=== PATIENT | female | born 1980 | race Caucasian/White ===

== ENCOUNTER 2023-06-19 12:58 | Outpatient (CLI) | payer OTHER, SELFPAY ==
--- OUTSIDE RECORDS SUMMARY | 2023-06-19 13:06 | XMS_ITS | Encounter Summary ---
Author Name [facility] Organization [facility] Address [address] [place] [address] Support Name Relationship Address Phone SHERITA FAVIOLA Next of Kin [address] [place] [address] SHERITAFAVIOLA Emergency Contact [address] [place], [place] [phone] JOSE ELIAS LANDON Next of Kin [address] [facility] [place], [place] ISSAC LANDON Emergency Contact [address] [place], [place] Selected Encounter This section includes the information on record at [place] for the Encounter. Date/Time Encounter Type Encounter Description Reason Provider Source Apr 20, 2023 03:07 PM EMERGENCY DEPT VISIT [facility] EMERGENCY DEPT ICD-10-CM I10 Essential (primary) hypertension SA ELLE GARZA Blake Encounter Template Text not used by [place] Assessments - Encounter Diagnoses This section includes the primary and secondary diagnoses documented for the Encounter. Date/Time Primary/Secondary Diagnosis Diagnosis Name Provider Source Apr 20, 2023 04:05 PM PRIMARY Essential (primary) hypertension GREGSA [facility] Plan of Treatment: Future Appointments (+ 6 months) and Future Tests (+/- 45 days) The Plan of Treatment section includes future care activities for the patient from all [place] treatmentfacilities. This section includes future appointments and future orders which are active, pending or scheduled. Future Appointments This section includes appointments that were scheduled to occur 6 months from the date of the Encounter, up to a maximum of 20 appointments. The data comes from all [place] treatment facilities. Appointment Date/Time Appointment Type Appointme nt Facility Name Apr 24, 2023 10:00 AM AMBULATORY - NONE [facility] May 12, 2023 02:00 PM AMBULATORY - MEDICINE [facility] Vital Signs: All taken on the encounter date This section contains inpatient and outpatient Vital Signs collected on the date of the Encounter. Date/Time Temperature Pulse Blood Pressure Respiratory Rate SP02 Pain Height Weight Body Mass Index Source Apr 20, 2023 03:55 PM 171/107 [facility] Apr 20, 2023 03:12 PM 98.6 100 210/110 99 [facility] Advance Directives: All historical and current Section Date Range: From patient's date of to the date document was created. This section includes ALL of a patient's completed or amended [place] Advance and Rescinded Directives. The entries below indicate that a directive exists for the patient, but an actual copy is not included with this document. The data comes from all [place] facilities. Date Advance Directives Provider Source Sep 13, 2018 ADVANCE DIRECTIVE DISCUSSION [facility] Encounter Notes: All associated encounter notes This section contains the clinical notes associated to the Encounter. Date/Time Encounter Note(s) Provider Source Apr 20, 2023 04:06 PM PHYSICIAN EMERGENC Y DEPT NOTE: LOCAL TITLE: EMERGENCY DEPT NOTE STANDARD TITLE: PHYSICIAN EMERGENCY DEPT NOTE DATE OF NOTE: APR 20, 2023@16:06 ENTRY DATE: APR 20, 2023@16:06:36 AUTHOR: LLOYD GARZA EXP COSIGNER: URGENCY: STATUS: COMPLETED Personal Protective Equipment (PPE): None Chief Complaint: The patient is a 43 y/o FEMALE complaining of: High blood pressure TDAP/TD Immunizations No data available for: TETANUS TOXOID, ADSORBED TETANUS TOXOID, NOT ADSORBED TETANUS TOXOID, UNSPECIFIED FORMULATION TDAP Covid-19 Immunizations ADMINISTERED Immunization Series Date Facility Reaction Info COVID-19 (MODERNA), MRNA, LNP-S,* 07/14/2020 [facility] COVID-19 (MODERNA), MRNA, LNP-S,* 08/11/2020 [facility] COVID-19 (MODERNA), MRNA, LNP-S,* 03/11/2021 [facility] CONTRAINDICATED No data available REFUSED ======= No data available * Value is truncated; see the Detailed Immunizations Health Summary Component[DIM] for complete text History of present illness: Patient with history of hypertension who is on diltiazem and olmesartan who has run out of the latter medication went to [facility] urgent care to get a refill of her meds and there she was found to have high blood pressure 210/110 so they asked the patient to go to the emergency room and she came here. Patient states that she has been having on and off some headache but denies any vision changes. Denies current chest pain. She has taken her diltiazem today but not the other medication. Allergies: Patient has answered NKA Review of Systems: 10 point ROS reviewed and otherwise negative unless stated in HPI. Past Medical History: Problem List - Active - NONE FOUND Medications: Active Outpatient Medications (excluding Supplies): No Medications Found Physical Exam: BP: 171/107 (04/20/2023 15:55) P: 100 (04/20/2023 15:12) R: 16 (11/22/2022 13:55) T: 98.6 F [37.0 C] (04/20/2023 15:12) O2 Sats: 99% (04/20/2023 15:12) General: well developed, well nourished, NAD, obese Skin: no rash, no lesions Cardiovascular: RRR, S1/S2 Neuro: alert and oriented, grossly non-focal ED Course/Medical Decision Making/Assessment: CPRS Notes/Labs Reviewed for Patient Encounter: Emergency department triage, emergency department nursing note, 43-year-old M to F here for high blood pressure. repeat blood pressure in the room was 171/101. Patient has not taken one of her meds. I ordered olmesartan 20 mg/day at the pharmacy that she usually takes of her medication which is a [facility]. Also ordered blood pressure cough and prosthetics and she is going to pick it up. Patient was discharged in stable condition with reassurance provided. Patient to follow with her PCP in 2 to 3 weeks for medication adjustment. Disposition:home // LLOYD GARZA MD ED Staff Physician Signed: 04/20/2023 16:18 LLOYD GARZA [facility] Apr 20, 2023 04:03 PM EMERGENCY DEPT [facility] NOTE: LOCAL TITLE: EMERGENCY DEPT DISCHARGE INSTRUCTIONS STANDARD TITLE: EMERGENCY DEPT EDUCATION NOTE DATE OF NOTE: APR 20, 2023@16:03:16 ENTRY DATE: APR 20, 2023@16:03:16 AUTHOR: LLOYD GARZA EXP COSIGNER: URGENCY: STATUS: COMPLETED DISCHARGE INSTRUCTIONS IMPORTANT: We examined and treated you today on an emergency basis only. This was not a substitute for, or an effort to provide, comprehensive medical care. In most cases, you must let your healthcare provider check you again. Tell your healthcare provider about any new or lasting problems. We cannot recognize and treat all injuries or illnesses in one Emergency Department visit. After you leave, you should follow the instructions below. You were treated today by Lloyd Garza MD. ---- Special Information ---- ---- This Information Is About Your Follow Up Care ---- Please follow-up with your primary care Future Appointments Future Appointments List not available ---- This Information Is About Your Illness and Diagnosis ---- HYPERTENSION STAGE 1 (High Blood Pressure Stage 1) Blood pressure is a measurement of how much force or pressure your blood exerts on the inner [place] of your arteries. Arteries are the blood vessels that carry blood from your heart to the rest of your body. Healthy arteries are strong and flexible. The inner [place] have a smooth lining to allow blood to flow freely. Blood pressure is measured by two numbers: -Systolic (top number)-measures the pressure your blood exerts on the [place] of your arteries when your heart beats. -Diastolic (bottom number)-measures the pressure your blood exerts on the [place] of your arteries between beats (when your heart is resting). Your health care provider will tell you what normal blood pressure is for you. Hypertension Stage 1 occurs when your blood pressure is consistently in the range of 130 to 139 systolic or 80 to 89 diastolic. When your blood pressure is too high for too long, the extra pressure can damage and weaken the [place] of your arteries. Your arteries' inner lining can develop tiny tears. -Blood cells can collect and form a clot in the tears, allowing less blood to flow through your arteries. If the blood clot breaks free and travels through your bloodstream, it can lodge in your heart (causing a heart attack) or your brain (causing a stroke). -LDL cholesterol (the bad cholesterol) can also collect in the damaged arteries. This causes your arteries to become less elastic. It also causes the inner part of your arteries to narrow, allowing less blood to flow through them. Damaged blood vessels due to high blood pressure can affect your whole body: -Bulges can form in weakened blood vessels. These are called aneurysms. Aneurysms can possibly burst, causing life-threatening bleeding. -Your heart has to work harder than usual in order to pump blood. Over time, your heart muscle gets weaker and eventually fails. -The reduced blood flow to the rest of your body can cause damage to any of your body organs. The organs most affected by high blood pressure are the heart, brain, kidneys, eyes, and sexual organs. What are the risk factors for hypertension? Risk factors are circumstances that increase your chance of high blood pressure. It is possible for you to change some risk factors, while some risk factors are not under your control. Risk factors related to who you are: -Your age: The chances of high blood pressure increase with age. -Your family history: You are at an increased risk of high blood pressure if your close relatives have had it. -Your gender: Until age 64, men are more likely to have high blood pressure than women. After age 65, women are more likely to have high blood pressure. -Your race: Americans tend to have high blood pressure more often than people from other racial backgrounds in the [place]. -Having chronic kidney disease Risk factors that you can change to prevent and manage your high blood pressure: -Being overweight or obese -Too little exercise and physical activity -Having an unhealthy diet that is high in calories (eating foods that are high in salt, sugar, and saturated and trans fats) -Drinking too much alcohol -Smoking and using tobacco -Stress -Psychosocial stress and low socioeconomic status (affecting access to basic living necessities, medicines, and health care providers; and the ability to make healthy lifestyle changes) -High cholesterol -Diabetes -Sleep apnea (a health condition in which people stop breathing for periods of time when they are sleeping) While high blood pressure can't be cured, making lifestyle changes can keep it under control. It will also reduce your risk of heart disease, stroke, and other associated health problems. Medicines will be prescribed if lifestyle changes don't bring your blood pressure back to normal. There are many different kinds of medicines used to treat high blood pressure. It may take some trials to find the right medicine for you. You may need more than one medicine to keep your blood pressure under control. Please follow these instructions: Make important lifestyle changes to control your blood pressure. -Work together with your health care provider. Regular meetings with your health care providers are important for managing your high blood pressure. Don't miss any appointments. -Quit smoking and using tobacco. Talk with your health care provider about programs and medicines that can help you quit smoking. -Eat a heart-healthy, well-balanced diet. -Limit the amount of sodium (salt) in your diet. Follow the DASH meal plan (additional information available). -Eat heart-healthy foods: fresh fruits and vegetables, beans, whole grains, and lean protein (chicken, fish). Limit or avoid processed foods, fried foods, high-fat baked pastries, saturated fats, and partially hydrogenated and hydrogenated fats. Check food labels and select foods without trans fats. -Talk to your healthcare provider about taking vitamin supplements such as omega-3 fatty acids. -Keep your blood sugar under control if you are diabetic. -Lose weight, if you are overweight. Maintain a healthy weight. -Enjoy regular, daily exercise and physical activity. It not only helps reduce blood pressure, but also helps reduce your cholesterol and keep your blood sugar at a normal level. It also improves your mood by increasing oxygen to your brain. -Limit the amount of alcohol you drink (1 drink per day for women, 2 drinks per day for men). -Learn how to monitor your blood pressure at home. Check your blood pressure on a regular basis. Write down the date, time, and your blood pressure numbers. Get to know your blood pressure numbers and what numbers are normal for you. If there are issues that are keeping you from following through with your plan (such as a busy schedule, lifestyle or habits, cost of medicines, or motivation), talk to your health care provider about ways to overcome them. Contact your health care provider immediately if: -Your blood pressure is higher than 180 systolic and/or 120 diastolic. -You have chest pain. -You have shortness of breath. -You get a sudden, severe headache. -You have weakness, numbness, or tingling of your arms, legs, or face. -You have trouble speaking. -You have changes in your vision. -You suddenly feel confused or disoriented. Contact your health care provider as soon as possible if: -Your blood pressure readings are increasing. -You feel unusually tired, dizzy, or lightheaded. -Your urine is dark or tea colored. -You don't urinate as often as usual or only in small amounts -You have any questions or concerns. For more information, contact: [place] [employer] (AHA) www.heart.org National Heart, Lung & Blood [place] www.nhlbi.nih.gov ---- IMPORTANT MEDICATION INFORMATION -Your medication list includes any medications that were recently prescribed but not filled by the Pharmacy (PENDING Medicines). -Included are any known ACTIVE Medicines. Please review this list to make sure it is accurate, if this list does not match the current medications you are taking please follow-up with your Primary Care Team to have your Medication List reviewed. Medicines Medication List not available YOU ARE THE MOST IMPORTANT FACTOR IN YOUR RECOVERY. Follow the above instructions carefully. Take your medicines as prescribed. If you do not understand any of your medicines, please ask questions. If you have any outstanding tests from the emergency department, please contact your provider to review them in the next 3-5 days. If you have new symptoms, feel worse, or are not getting better as discussed, call to discuss your health questions and arrange for follow-up care, or return to the Emergency Room IF YOU ARE EXPERIENCING A MEDICAL EMERGENCY CALL 911 OR GO TO THE NEAREST EMERGENCY ROOM // LLOYD GARZA MD ED Staff Physician Signed: 04/20/2023 16:[address] [facility] Apr 20, 2023 04:02 PM NURSING EMERGENCY DEPT NOTE: LOCAL TITLE: EMERGENCY DEPT NURSING NOTE STANDARD TITLE: NURSING EMERGENCY DEPT NOTE DATE OF NOTE: APR 20, 2023@16:02 ENTRY DATE: APR 20, 2023@16:02:17 AUTHOR: KRISH ALFREDO COSIGNER: URGENCY: STATUS: COMPLETED Emergency Department Discharge Education Personal Protective Equipment (PPE): Patient was in mask on arrival The patient was given education on the following: EDUCATION/TEACH BACK: [facility] discharge instructions have been reviewed with Patient AND had an opportunity to ask questions, has verbalized understanding, have received a copy of the [facility] instructions EDUCATIONAL LEVEL OF UNDERSTANDING: Patient was ready and receptive to education. BARRIERS TO LEARNING: No barriers identified Accompanied by: Self Mode of Transportation: Drive self EXIT ADDITIONAL EDUCATION GIVE: Discharged to: Home // KRISH ALFREDO RN Signed: 04/20/2023 16:[address] [facility] Apr 20, 2023 03:14 PM NURSING EMERGENCY DEPT TRIAGE NOTE: LOCAL TITLE: EMERGENCY DEPARTMENT NURSING TRIAGE NOTE STANDARD TITLE: NURSING EMERGENCY DEPT TRIAGE NOTE DATE OF NOTE: APR 20, 2023@15:14 ENTRY DATE: APR 20, 2023@15:14:11 AUTHOR: YUDITH JEFF EXP COSIGNER: URGENCY: STATUS: COMPLETED Emergency Department/Urgent Care Center Triage Patient age:43 Sex: FEMALE On arrival patient was: AMBULATORY Patient phone number: Allergies: Patient has answered NKA Subjective/Chief Complaint: HTN blurry vision, slight headache Objective: hx htn on diltiazem, pt reports took today. denies nausea, currently denies chest pain. aox4. BP 210/110. The patient is not a fall risk. Vital Signs * Blood Pressure: 210/110 (04/20/2023 15:12) Heart Rate: 100 (04/20/2023 15:12) Respirations: 16 (11/22/2022 13:55) Temperature: 98.6 F [37.0 C] (04/20/2023 15:12) Pain: 0 (11/22/2022 13:55) Weight: O2 Sats: 99% (04/20/2023 15:12) Emergency Severity Index (VALENCIA) level Level 3 Current Medications: Active Outpatient Medications (including Supplies): No Medications Found Current Problems: No Active Problems on record Identification of Seniors at Risk (ISAR):* Defer screen 44 yrs Suicide Screen: [place] Suicide Severity Rating Scale (C-SSRS) screener 1. Over the past month, have you wished you were or wished you could go to sleep and not wake up? No 2. Over the past month, have you had any actual thoughts of killing yourself? No 3. Over the past month, have you been thinking about how you might do this? Response not required due to responses to other questions. 4. Over the past month, have you had these thoughts and had some intention of acting on them? Response not required due to responses to other questions. 5. Over the past month, have you started to work out or worked out the details of how to kill yourself? Response not required due to responses to other questions. 6. If yes, at any time in the past month did you intend to carry out this plan? Response not required due to responses to other questions. 7. In your lifetime, have you ever done anything, started to do anything, or prepared to do anything to end your life (for example, collected pills, obtained a gun, gave away valuables, went to the roof but didn't jump)? No 8. If YES, was this within the past 3 months? Response not required due to responses to other questions. /ti/ YUDITH JEFF REGISTERED NURSE Signed: 04/20/2023 15:[address] [facility]
--- OUTSIDE RECORDS SUMMARY | 2023-06-19 13:06 | XMS_ITS | Continuity of Care Document ---
Author Name [facility] Organization [facility] Care Team Providers Care Vessel Operator Name Role Phone [facility] Unavailable Unavailable Problems Combined list of problems from Department of Defense and Veterans Affairs facilities. It does not include entries that were removed or entered in error. Problem Status Onset Date Problem Type Date of Resolution Comments Source Diseases of mitral and aortic valves Active 019 Condition Ambulatory Pharmacy Eruption of skin Active 019 Condition Ambulatory Pharmacy Nicotine dependence Active 019 Condition Ambulatory Pharmacy Family history of stroke1 Active 016 Condition 10/21/2015 - JEREMI HOWELL
father and grandfather before 50 Ambulatory [facility]acy Raynaud's phenomenon Active 016 Condition [facility]ulatory Pharm[facility] Impetigo Active 015 Condition Ambulatory Pharmacy Acne Active 014 Condition Ambulatory Pharmacy HTN-Hypertension ([facility] [id number]) Active 014 Condition Ambulatory Pharmacy Migraine Active 014 Condition [facility]ulatory Pharmacy Smoker Active 014 Condition Ambulatory Pharmacy Headache * (ICD-9-CM 784.0) Active 007 Condition Ambulatory Pharmacy Vomiting * (ICD-9-CM 787.03) Active 007 Condition Ambulatory Pharmacy Acne Active Condition [facility] Diseases of mitral and aortic valves Active Condition [facility] Eruption of skin Active Condition [facility] Exposure to potentially hazardous substance Active Condition [facility] Family history of cerebral infarction Active Condition May 12, 2023 Entered By: MIKE LLOYD Comment: Father with very hard to control HTN and CVA before 55. He also had astrocytoma. by suicide. [facility] Family history of stroke Active Condition Oct 21, 2015 Entered By: JEREMI HOWELL Comment: father and grandfather before 50 [facility] Headache * (ICD-9-CM 784.0) Active Condition [facility] History of colonoscopy Active Condition May 12, 2023 Entered By: MIKE LLOYD Comment: Colonoscopy 03/30/2021 for diarrhea. +internal hemorrhoids, +possible lymphocytic colitis. No polyps [facility] HTN-Hypertension ([facility] [id number]) Active Condition [facility] Hypertension Active Condition May 12, 2023 Entered By: MIKE LLOYD Comment: well controlled on 5 medications. Off medications, BP in 220s/100s. Has follow up with renal outside [place] for secondary HTN workup [facility] Hypertensive disorder Active Condition [facility] Impetigo Active Condition [facility] Irritable bowel syndrome with diarrhea Active Condition May 12, 2023 Entered By: MIKE LLOYD Comment: on dicyclomine [facility] Microscopic colitis Active Condition [facility] Migraine Active Condition [facility] Migraine Active Condition May 11 Entered By: MIKE LLOYD Comment: occasional. uses sumatriptan. [facility] Nicotine dependence Active Condition 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 DoD partner relational problem Inactive Condition DoD bereavement without complications Active Condition DoD tooth pain Inactive Condition DoD joint pain in the left knee Active Condition DoD Observation For Suspected Mental Condition Inactive Condition DoD vomiting Inactive Condition DoD lymphadenopathy Inactive Condition DoD Patient Education Active Condition DoD lower back pain Active Condition DoD open wound tooth fracture Inactive Condition DoD anxiety Active Condition DoD Need For Vaccination Pneumococcal Inactive Condition DoD cervical dysplasia: mild Active Condition DoD otitis externa Inactive Condition DoD candidiasis oral thrush Inactive Condition DoD visit for: screening exam rheumatic disorders Inactive Condition DoD Sjogren syndrome Active Condition DoD fatigue Active Condition DoD essential hypertension Active Condition DoD neck pain Inactive Condition DoD lightheadedness Inactive Condition DoD sinusitis acute Inactive Condition DoD upper respiratory infection Inactive Condition DoD gastroenteritis Inactive Condition DoD lump in / on the skin Inactive Condition DoD dermatitis Inactive Condition DoD chest pain or discomfort Active Condition DoD depression Active Condition DoD pterygium right eye nasal Active Condition DoD dry eye syndrome right eye Active Condition DoD migraine headache Active Condition DoD limb weakness temporary [Sx] Active Condition DoD Cerv Pap (+) Low Grade Squamous Intraepithelial Lesion Active Condition DoD warts genital Inactive Condition DoD Pap Smear (+) Low Grade Squamous Intraepithelial Lesion Active Condition DoD pigmented nevus Inactive Condition DoD benign skin neoplasm dermatofibroma Inactive Condition DoD temporomandibular dislocation closed Inactive Condition DoD skin neoplasm uncertain behavior Active Condition DoD herpes zoster (shingles) Inactive Condition DoD Cervical Pap Smear Inactive Condition Do D routine gynecological exam with cervical pap smear Inactive Condition DoD visit for: ears / hearing exam Inactive Condition DoD visit for: screening exam pulmonary tuberculosis Inactive Condition DoD blood in urine Inactive Condition DoD tingling (paresthesia) Inactive Condition DoD sebaceous cyst Inactive Condition DoD skin symptoms Inactive Condition DoD nausea with vomiting Inactive Condition DoD cellulitis of the left arm Inactive Condition DoD Patient Education - Alcohol Inactive Condition DoD caffeine-induced anxiety disorder Inactive Condition DoD Guidance: Concerns About Alcohol Use Inactive Condition DoD Observation For Suspected Condition Inactive Condition DoD nicotine dependence Active Condition Do D hand sprain right 5th [facility] joint Active Condition DoD contusion with intact skin surface Inactive Condition DoD insomnia Active Condition DoD Hyperhidrosis Active Condition DoD acute bronchitis Inactive Condition DoD pharyngitis Inactive Condition DoD dizziness Inactive Condition DoD migraine headache ophthalmoplegic Inactive Condition DoD cellulitis Inactive Condition DoD visit for: services physical Active Condition DoD skin: rash [as Sx] Active Condition DoD skin disorders appendage hair follicle folliculitis Inactive Condition DoD shoulder strain supraspinatus muscle Active Condition DoD Intervention And Counseling On Cessation Of Tobacco Use Inactive Condition DoD visit for: issue repeat prescription for medication Inactive Condition DoD Need For Vaccination Yellow Fever Active Condition DoD superficial injury blister of right foot Inactive Condition [facility] DoD superficial injury blister of left foot Inactive Condition [facility] DoD noise induced hearing loss Active Condition DoD assessment of patient condition work-related Inactive Condition DoD viral syndrome Inactive Condition Follo w up from [facility] Feels better. DoD menses abnormal Inactive Condition spot ting in the last month. Pt does smoke (cutting back) and not always consistent with OCP. Denies cramping or abdominal pain. Discussed and will schedule pelvic exam if symptoms persist and change OCP if indicated. HCG negative today. DoD visit for: issue repeat prescription Inactive Condition Hx Cardi ology workup for PVC's, questionable Hx cardiac problems, stenosis as child. Will obtain records from Cardiology visit 11/09 and follow up as indicated. Discussed avoidance of sudafed and other drugs that could cause symptoms/adver se effects depending on Dx. Refill cardizem 120 today and to take daily (no doubling or self medicating emphasized). DoD bronchitis Inactive Condition c/w sinus itis. Increase fluids, pulmonary hygiene and medications for relief of symptoms DoD Diagnosis: ICD-10-CM I10 Essential (primary) hypertension Active Diagnosis [facility] Diagnosis: ICD-10-CM U07.1 COVID-19 Active Diagnosis [facility] Medications Combined list of outpatient medications from Department of [facility] and [facility] facilities.Medications provided include 1) outpatient medications from the last 15 months, and 2) patient-reported medications. Medication Details Route Status Patient Instructions Prescription Expires Prescription Number Last Dispense Date Ordering Provider Order Date Order Qty Source CARVEDILOL 6.25MG TAB TAKE ONE TABLET BY MOUTH TWICE A DAY FOR BLOOD PRESSURE ORALLY ACTIVE 05/12/2024 [id number] LLOYD,MIKE L 2023 180 [facility] CHLORTHALID ONE 25MG TAB TAKE ONE TABLET BY MOUTH EVERY DAY FOR BLOOD PRESSURE ORALLY ACTIVE 05/12/2024 [id number] 4 LLOYD,MIKE L 2023 90 [facility] CITALOPRAM HYDROBROMID E 20MG TAB TAKE ONE TABLET BY MOUTH EVERY DAY ORAL ACTIVE Alcon HOWELL ISMET R 2015 [facility] DICYCLOMINE HCL 10MG CAP TAKE ONE CAPSULE BY MOUTH EVERY DAY NEEDED FOR IRRITABL E BOWEL ORALLY ACTIVE 05/12/2024 [id number] LLOYD,MIKE L 2023 90 [facility] DILTIAZEM (EQV-TIAZAC AB4) 240MG 24HR CAP TAKE ONE CAPSULE BY MOUTH EVERY DAY FOR BLOOD PRESSURE ORALLY ACTIVE 05/12/2024 [id number] LLOYD,MIKE L 2023 90 [facility] DILTIAZEM (EQV-TIAZAC AB4) 240MG 24HR CAP TAKE 1 CAPSULE BY MOUTH EVERY DAY ORAL ACTIVE Alcon HOWELL ISMET R 2015 [facility] IBUPROFEN TAB TAKE BY MOUTH ORAL ACTIVE AFSANEH [place] 2013 [facility] INV-NIRMATR JEREMY 150MG X 4/RITONAVIR 100MG X 2 TAB DAILY PACK TAKE ACCORDIN G TO DIRECTIO NS IN PACKAGE BY MOUTH TWICE A DAY COVID-19 ORALLY 12/22/2022 [id number] ALVIN [place] 2022 5 [facility] [place]ARTAN POTASSIUM 100MG TAB TAKE ONE TABLET BY MOUTH EVERY DAY FOR BLOOD PRESSURE ORALLY ACTIVE 05/12/2024 [id number] 4 LLOYD,MIKE L 2023 90 [facility] METOPROLOL TARTRATE 50MG TAB TAKE ONE TABLET BY MOUTH EVERY DAY ORAL ACTIVE Alcon HOWELL ISMET R 2015 [facility] OMEPRAZOLE 20MG CAP,EC TAKE ONE CAPSULE BY MOUTH EVERY DAY FOR HEARTBUR N ORALLY ACTIVE 05/12/2024 [id number] LLOYD,MIKE L 2023 90 [facility] SPIRONOLACT ONE 25MG TAB TAKE ONE TABLET BY MOUTH EVERY DAY FOR BLOOD PRESSURE ORALLY ACTIVE 05/12/2024 [id number] 4 LLOYD,MIKE L 2023 90 [facility] SUMATRIPTAN SUCCINATE 25MG TAB TAKE ONE TABLET BY MOUTH EVERY DAY NEEDED AT ONSET OF MIGRAINE , MAY REPEAT DOSE ONCE AFTER 2 HOURS IF NO IMPROVEM ENT. CONTACT PROVIDER IF TAKING MORE THAN 3 TIMES PER WEEK TO CONSIDER PREVENTI VE MEDICINC E ORALLY ACTIVE 05/12/2024 [id number] 4 LLOYD,MIKE Valorie 2023 9 [facility] TRAZODONE HCL 50MG TAB TAKE ONE TABLET BY MOUTH EVERY DAY ORAL ACTIVE Alcon HOWELL ISMET R 2015 [facility] VARENICLINE 1MG TAB TAKE ONE-HALF TABLET BY MOUTH EVERY DAY FOR 3 DAYS, THEN TAKE ONE-HALF TABLET TWICE A DAY FOR 4 DAYS, THEN TAKE ONE TABLET TWICE A DAY TO QUIT TOBACCO ORALLY ACTIVE 05/12/2024 [id number] 4 LLOYD,MIKE L 2023 56 [facility] Allergies, Adverse Reactions, Alerts Combined list of allergies from Department of Defense and Veterans Affairs facilities. It does not include entries that were removed or entered in error. Substance Category Reaction Severity Reaction type Status Date Reported Comments Source NISA INHIBITORS Drug allergy (disorder) Cough active 4 [facility] AMOXICILLIN (AMOXICILLIN ) Drug allergy (disorder) [facility] Propensity to adverse reactions to drug (finding) Cough active 4 [facility] LISINOPRIL Propensity to adverse reactions to drug (finding) Cough MILD active 4 [facility] lisinopril Drug allergy Cough (finding) Active One or More [facility] Facilities [employer]PER[employer] Immunizations Combined list of available immunizations from the Department of Defense and Veterans Affairs facilities. Immunization Series Date Given Administered By Site Reaction Lot Number CVX Code Drug Hand Drawer In Status Comments Source INFLUENZA, INJECTABLE, QUADRIVALENT, PRESERVATIVE FREE 2023 SHERYL BAUER LEFT DELTO ID [id number] A 150 complet ed [facility] TDAP 2023 SHERYL BAEUR LEFT DELTO ID [id number] 115 complet ed [facility] pneumococcal 20-valent conjugate vaccine 2021 216 complet ed pneumococ anraldo 20-valent conjugate vaccine 09/22/21 Recorded Ambulat ory Pharmac y PNEUMOCOCCAL CONJUGATE PCV20, POLYSACCHARID E [id number] CONJUGATE, ADJUVANT, PF 2021 216 complet ed [facility] influenza, injectable, quadrivalent- pf 2021 150 complet ed influenza , injectabl e, quadrival ent-pf 03/11/21 Recorded Ambulat ory Pharmac y COVID Vaccine Moderna 2021 207 complet ed COVID Vaccine Moderna 03/11/21 Recorded Ambulat ory Pharmac y COVID-19 (MODERNA), MRNA, LNP-S, PF, 100 MCG/0.5ML DOSE OR 50 MCG/0.25ML DOSE 2021 207 complet ed [facility] INFLUENZA, INJECTABLE, QUADRIVALENT, PRESERVATIVE FREE 2021 150 complet ed [facility] COVID Vaccine Moderna 2020 207 complet ed COVID Vaccine Moderna 08/11/20 Recorded Ambulat ory Pharmac y COVID-19 (MODERNA), MRNA, LNP-S, PF, 100 MCG/0.5ML DOSE OR 50 MCG/0.25ML DOSE 2020 207 complet ed [facility] COVID Vaccine Moderna 2020 207 complet ed COVID Vaccine Moderna 07/14/20 Recorded Ambulat ory Pharmac y COVID-19 (MODERNA), MRNA, LNP-S, PF, 100 MCG/0.5ML DOSE OR 50 MCG/0.25ML DOSE 2020 207 complet ed [facility] PNEUMOCOCCAL POLYSACCHARID E PPV23 2015 33 complet ed [facility] PNEUMOCOCCAL, UNSPECIFIED FORMULATION 2015 109 complet ed [facility] TDAP 2015 115 complet ed [facility] tetanus, diphtheria, acellular pertu is 2015 115 complet ed tetanus, diphtheri a, acellular pertussis 10/21/15 Recorded Ambulat ory Pharmac y pneumococcal vaccine, unspecified 2015 109 complet ed pneumococ arnaldo vaccine, unspecifi ed 10/21/15 Recorded Ambulat ory Pharmac y pneumococcal polysaccharid e, 23 valent 2015 33 complet ed pneumococ arnaldo polysacch aride, 23 valent 10/21/15 Recorded Ambulat ory Pharmac y tetanus, diphtheria, acellular pertu is 2013 115 complet ed tetanus, diphtheri a, acellular pertussis 08/04/13 Recorded Ambulat ory Pharmac y TDAP 2013 115 complet ed [facility] Influenza, seasonal, injectable, preservative free 0 2012 UNK 140 Med[employer] Inc. (MED) complet ed Influenza , seasonal, injectabl e, preservat isaias free [facility] influenza virus vaccine, live, attenuated, for intranasal use 0 2011 [id number] [employer] (CSL) complet ed influenza virus vaccine, live, attenuate d, for intranasa l use DoD pneumococcal polysaccharid e vaccine, 23 valent 1 2011 ROXY GRAHAM [id number] Merck (MSD) complet ed pneumococ arnaldo polysacch aride vaccine, 23 valent DoD influenza virus vaccine, live, attenuated, for intranasal use 0 2010 [id number] [employer] (MED) complet ed influenza virus vaccine, live, attenuate d, for intranasa l use DoD tuberculin skin test; purified protein derivative solution, intradermal 0 2010 KENDRA WELSH [id number] Sanofi Pasteur ([facility]) complet ed tuberculi n skin test; purified protein derivativ e solution, intraderm al DoD influenza virus vaccine, split virus (incl. purified surface antigen)-reti red CODE 0 2009 [id number] 15 Sanofi Pasteur ([facility]) complet ed influenza virus vaccine, split virus (incl. purified surface antigen)- retired CODE DoD typhoid Vi capsular polysaccharid e vaccine 2 2009 [id number] Sanofi Pasteur ([facility]) complet ed typhoid Vi capsular polysacch aride vaccine DoD anthrax vaccine 5 2009 [id number] (EBS) complet ed anthrax vaccine DoD Novel influenza-H1N 1-09, injectable 0 2009 [id number] 127 (AG) complet ed Novel influenza -[id number], injectabl e DoD tuberculin skin test; purified protein derivative solution, intradermal 0 2009 EDGARDO PEDROZA [id number] [employer] [employer] ([facility]) complet ed tuberculi n skin test; purified protein derivativ e solution, intraderm al DoD anthrax vaccine 4 2008 [id number] (TRN) complet ed anthrax vaccine DoD influenza virus vaccine, split virus (incl. purified surface antigen)-reti red CODE 0 2008 [id number] 15 Sanofi Pasteur ([facility]) complet ed influenza virus vaccine, split virus (incl. purified surface antigen)- retired CODE DoD meningococcal polysaccharid e vaccine (MPSV4) 1 2007 [id number] 32 [employer] ([facility]) complet ed meningoco ccal polysacch aride vaccine (MPSV4) DoD influenza virus vaccine, split virus (incl. purified surface antigen)-reti red CODE 0 2007 UNK 15 Unknown (UNK) comple t ed influenza virus vaccine, split virus (incl. purified surface antigen)- retired CODE DoD yellow fever vaccine 1 2007 Unknown, Provider [id number] Sanofi Pasteur ([facility]) complet ed yellow fever vaccine DoD anthrax vaccine 3 2007 [id number] [facility] [employer] [place] ([facility]) complet ed anthrax vaccine DoD typhoid Vi capsular polysaccharid e vaccine 1 2007 [id number] Sanofi Pasteur ([facility]) complet ed typhoid Vi capsular polysacch aride vaccine DoD anthrax vaccine 2 2007 UNK 24 (TRN) complet ed anthrax vaccine DoD anthrax vaccine 1 2006 UNK 24 (TRN) complet ed anthrax vaccine DoD hepatitis A and hepatitis B vaccine 3 2006 UNK 104 Unknown (UNK) comple t ed hepatitis A and hepatitis B vaccine DoD influenza virus vaccine, live, attenuated, for intranasal use 0 2006 UNK 111 Unknown (UNK) comple t ed influenza virus vaccine, live, attenuate d, for intranasa l use DoD poliovirus vaccine, inactivated 0 2006 UNK 10 Unknown (UNK) comple t ed polioviru s vaccine, inactivat ed DoD hepatitis A and hepatitis B vaccine 2 2006 UNK 104 Unknown (UNK) comple t ed hepatitis A and hepatitis B vaccine DoD measles, mumps and rubella virus vaccine 0 2006 UNK 03 Unknown (UNK) comple t ed measles, mumps and rubella virus vaccine DoD hepatitis A and hepatitis B vaccine 1 2006 UNK 104 Unknown (UNK) comple t ed hepatitis A and hepatitis B vaccine DoD influenza virus vaccine, live, attenuated, for intranasal use 0 2006 UNK 111 Unknown (UNK) comple t ed influenza virus vaccine, live, attenuate d, for intranasa l use DoD tetanus toxoid, reduced diphtheria toxoid, and acellular pertu is vaccine, adsorbed 0 2006 UNK 115 Unknown (UNK) comple t ed tetanus toxoid, reduced diphtheri a toxoid, and acellular pertussis vaccine, adsorbed DoD tetanus, diphtheria, acellular pertu is 2006 115 complet ed tetanus, diphtheri a, acellular pertussis 03/06/06 Recorded Ambulat ory Pharmac y TDAP 2006 115 complet ed [facility] Results Combined list of recent chemistry, hematology and other laboratory results from Department of Defense and Veterans Affairs, ranging from 15 months to all on record, depending upon the facility. Order Name Results Value Reference Range Date Interpretation Specimen Comments Source ACT PART THROMBO TIME APTT IN PLATELET POOR PLASMA BY COAGULATIO N ASSAY 32.0 25.1 - 36.5 09/03 Specimen Type: PLASMA No comment entered. Ordering Provider: IRENA REYNA Report Released Date/Time: Sep 03, 2021 12:22 PM Reporting Lab: [facility] [address] Performing Lab: [facility] [address] [place] [facility] BASIC METABOLI C PANEL+MG CREATININE [MASS/VOLU ME] IN SERUM OR PLASMA 0.9 0.5 - 1.0 09/03 Specimen Type: PLASMA No comment entered. Ordering Provider: IRENA REYNA Report Released Date/Time: Sep 03, 2021 12:22 PM Reporting Lab: [facility] [phone] Performing Lab: [facility] [address] [place] [facility] C PANEL+MG UREA NITROGEN [MASS/VOLU ME] IN SERUM OR PLASMA 13 7 - 20 09/03 Specimen Type: PLASMA No comment entered. Ordering Provider: IRENA REYNA Report Released Date/Time: Sep 03, 2021 12:22 PM Reporting Lab: [facility] [address] Performing Lab: [facility] [phone] [place] [facility]OLI C PANEL+MG GLUCOSE [MASS/VOLU ME] IN SERUM OR PLASMA 111 74 - 100 09/03 H Specimen Type: PLASMA No comment entered. Ordering Provider: IRENA REYNA Report Released Date/Time: Sep 03, 2021 12:22 PM Reporting Lab: [facility] [address] Performing Lab: [facility] [address] [place] [facility] METABOLI C PANEL+MG SODIUM [MOLES/VOL UME] IN SERUM OR PLASMA 141 136 - 145 09/03 Specimen Type: PLASMA No comment entered. Ordering Provider: IRENA REYNA Report Released Date/Time: Sep 03, 2021 12:22 PM Reporting Lab: [facility] [phone] Performing Lab: [facility] [address] [place] [facility] C PANEL+MG POTASSIUM [MOLES/VOL UME] IN SERUM OR PLASMA 4.2 3.5 - 5.1 09/03 Specimen Type: PLASMA No comment entered. Ordering Provider: IRENA REYNA Report Released Date/Time: Sep 03, 2021 12:22 PM Reporting Lab: [facility] [address] Performing Lab: [facility] [address] [place] [facility] C PANEL+MG CHLORIDE [MOLES/VOL UME] IN SERUM OR PLASMA 107 98 - 107 09/03 Specimen Type: PLASMA No comment entered. Ordering Provider: IRENA REYNA Report Released Date/Time: Sep 03, 2021 12:22 PM Reporting Lab: [facility] [address] Performing Lab: [facility] [address] [place] [facility]OL[facility] C PANEL+MG CARBON DIOXIDE, TOTAL [MOLES/VOL UME] IN SERUM OR PLASMA 26 22 - 29 09/03 Specimen Type: PLASMA No comment entered. Ordering Provider: IRENA REYNA Report Released Date/Time: Sep 03, 2021 12:22 PM Reporting Lab: [facility] [address] Performing Lab: [facility] [address] [place] [facility] C PANEL+MG CALCIUM [MASS/VOLU ME] IN SERUM OR PLASMA 8.9 8.4 - 10.2 09/03 Specimen Type: PLASMA No comment entered. Ordering Provider: IRENA REYNA Report Released Date/Time: Sep 03, 2021 12:22 PM Reporting Lab: [facility] [address] Performing Lab: [facility] [address] [place] [facility]OL[facility] C PANEL+MG MAGNESIUM [MASS/VOLU ME] IN SERUM OR PLASMA 1.8 1.6 - 2.6 09/03 Specimen Type: PLASMA No comment entered. Ordering Provider: IRENA REYNA Report Released Date/Time: Sep 03, 2021 12:22 PM Reporting Lab: [facility] [address] Performing Lab: [facility] [address] [facility] BASIC METABOLI C PANEL+MG ANION GAP IN SERUM OR PLASMA 8 5 - 15 09/03 Specimen Type: PLASMA No comment entered. Ordering Provider: IRENA REYNA Report Released Date/Time: Sep 03, 2021 12:22 PM Reporting Lab: [facility] [phone] Performing Lab: [facility] [address] [facility] METABOLI C PANEL+MG CREAT EGFR(CKD-E PI) 82 60 09/03 Specimen Type: PLASMA No comment entered. Ordering Provider: IRENA REYNA Report Released Date/Time: Sep 03, 2021 12:22 PM Reporting Lab: [facility] [address] Performing Lab: [facility] [address] [facility] BNP NATRIURETI C PEPTIDE B [MASS/VOLU ME] IN SERUM OR PLASMA 18 <99 - 99 09/03 Specimen Type: PLASMA No comment entered. Ordering Provider: IRENA REYNA Report Released Date/Time: Sep 03, 2021 12:22 PM Reporting Lab: [facility] [phone] Performing Lab: [facility] [address] [facility] CARDIAC TROPONIN I TROPONIN I.CARDIAC [MASS/VOLU ME] IN SERUM OR PLASMA <0.028 <0.028 - 0.028 09/03 Specimen Type: PLASMA No comment entered. Ordering Provider: IRENA REYNA Report Released Date/Time: Sep 03, 2021 12:22 PM Reporting Lab: [facility] [address] Performing Lab: [facility] [address] [facility] CBC & DIFF LEUKOCYTES [#/VOLUME] IN BLOOD BY AUTOMATED COUNT 8.22 4.0 - 11.0 09/03 Specimen Type: BLOOD Comment: Automated Differentia l Performed Ordering Provider: IRENA REYNA Report Released Date/Time: Sep 03, 2021 12:22 PM Reporting Lab: [facility] [address] Performing Lab: [facility] [address] [facility] CBC & DIFF ERYTHROCYT ES [#/VOLUME] IN BLOOD BY AUTOMATED COUNT 4.67 4.0 - 5.4 09/03 Specimen Type: BLOOD Comment: Automated Differentia l Performed Ordering Provider: IRENA REYNA Report Released Date/Time: Sep 03, 2021 12:22 PM Reporting Lab: [facility] [address] Performing Lab: [facility] [address] [facility] CBC & DIFF HEMOGLOBIN [MASS/VOLU ME] IN BLOOD 14.8 11.5 - 16 09/03 Specimen Type: BLOOD Comment: Automated Differentia l Performed Ordering Provider: IRENA REYNA Report Released Date/Time: Sep 03, 2021 12:22 PM Reporting Lab: [facility] [address] Performing Lab: [facility] [address] [facility] CBC & DIFF HEMATOCRIT [VOLUME FRACTION] OF BLOOD BY AUTOMATED COUNT 43.4 34.5 - 48 09/03 Specimen Type: BLOOD Comment: Automated Differentia l Performed Ordering Provider: IRENA REYNA Report Released Date/Time: Sep 03, 2021 12:22 PM Reporting Lab: [facility] [address] Performing Lab: [facility] [address] [facility] CBC & DIFF MCV [ENTITIC VOLUME] BY AUTOMATED COUNT 92.9 80 - 100 09/03 Specimen Type: BLOOD Comment: Automated Differentia l Performed Ordering Provider: IRENA REYNA Report Released Date/Time: Sep 03, 2021 12:22 PM Reporting Lab: [facility] [address] Performing Lab: [facility] [address] [facility] CBC & DIFF MCH [ENTITIC MASS] BY AUTOMATED COUNT 31.7 27 - 33 09/03 Specimen Type: BLOOD Comment: Automated Differentia l Performed Ordering Provider: MITHANI,IRENA IRA A Report Released Date/Time: Sep 03, 2021 12:22 PM Reporting Lab: [facility] [address] Performing Lab: [facility] [address] [facility] CBC & DIFF MCHC [MASS/VOLU ME] BY AUTOMATED COUNT 34.1 32.0 - 37.5 09/03 Specimen Type: BLOOD Comment: Automated Differentia l Performed Ordering Provider: IRENA REYNA Report Released Date/Time: Sep 03, 2021 12:22 PM Reporting Lab: [facility] [address] Performing Lab: [facility] [address] [facility] CBC & DIFF PLATELETS [#/VOLUME] IN BLOOD BY AUTOMATED COUNT 334 150 - 400 09/03 Specimen Type: BLOOD Comment: Automated Differentia l Performed Ordering Provider: IRENA REYNA Report Released Date/Time: Sep 03, 2021 12:22 PM Reporting Lab: [facility] [address] Performing Lab: [facility] [address] [facility] CBC & DIFF PLATELET MEAN VOLUME [ENTITIC VOLUME] IN BLOOD BY AUTOMATED COUNT 9.1 7.4 - 10.4 09/03 Specimen Type: BLOOD Comment: Automated Differentia l Performed Ordering Provider: IRENA REYNA Report Released Date/Time: Sep 03, 2021 12:22 PM Reporting Lab: [facility] [address] Performing Lab: [facility] [address] [facility] CBC & DIFF NEUTROPHIL S/100 LEUKOCYTES IN BLOOD BY MANUAL COUNT 70.6 09/03 Specimen Type: BLOOD Comment: Automated Differentia l Performed Ordering Provider: IRENA REYNA Report Released Date/Time: Sep 03, 2021 12:22 PM Reporting Lab: [facility] [address] Performing Lab: [facility] [address] [facility] CBC & DIFF LYMPHOCYTE S/100 LEUKOCYTES IN BLOOD BY MANUAL COUNT 19.0 09/03 Specimen Type: BLOOD Comment: Automated Differentia l Performed Ordering Provider: IRENA REYNA Report Released Date/Time: Sep 03, 2021 12:22 PM Reporting Lab: [facility] [address] Performing Lab: [facility] [address] [facility] CBC & DIFF MONOCYTES/ 100 LEUKOCYTES IN BLOOD BY AUTOMATED COUNT 7.4 09/03 Specimen Type: BLOOD Comment: Automated Differentia l Performed Ordering Provider: IRENA REYNA Report Released Date/Time: Sep 03, 2021 12:22 PM Reporting Lab: [facility] [address] Performing Lab: [facility] [address] [facility] CBC & DIFF EOSINOPHIL S/100 LEUKOCYTES IN BLOOD BY AUTOMATED COUNT 1.5 09/03 Specimen Type: BLOOD Comment: Automated Differentia l Performed Ordering Provider: IRENA REYNA Report Released Date/Time: Sep 03, 2021 12:22 PM Reporting Lab: [facility] [address] Performing Lab: [facility] [address] [facility] CBC & DIFF BASOPHILS/ 100 LEUKOCYTES IN BLOOD BY MANUAL COUNT 1.1 09/03 Specimen Type: BLOOD Comment: Automated Differentia l Performed Ordering Provider: IRENA REYNA Report Released Date/Time: Sep 03, 2021 12:22 PM Reporting Lab: [facility] [address] Performing Lab: [facility] [address] [facility] CBC & DIFF ERYTHROCYT E DISTRIBUTI ON WIDTH [RATIO] BY AUTOMATED COUNT 12.7 11.5 - 14.5 09/03 Specimen Type: BLOOD Comment: Automated Differentia l Performed Ordering Provider: IRENA REYNA Report Released Date/Time: Sep 03, 2021 12:22 PM Reporting Lab: [facility] [address] Performing Lab: [facility] [address] [facility] CBC & DIFF LYMPHOCYTE S [#/VOLUME] IN BLOOD BY AUTOMATED COUNT 1.56 1.0 - 4.0 09/03 Specimen Type: BLOOD Comment: Automated Differentia l Performed Ordering Provider: IRENA REYNA Report Released Date/Time: Sep 03, 2021 12:22 PM Reporting Lab: [facility] [address] Performing Lab: [facility] [address] [facility] CBC & DIFF MONOCYTES [#/VOLUME] IN BLOOD BY AUTOMATED COUNT 0.61 0.1 - 1.0 09/03 Specimen Type: BLOOD Comment: Automated Differentia l Performed Ordering Provider: IRENA REYNA Report Released Date/Time: Sep 03, 2021 12:22 PM Reporting Lab: [facility] [address] Performing Lab: [facility] [address] [facility] CBC & DIFF NEUTROPHIL S [#/VOLUME] IN BLOOD BY AUTOMATED COUNT 5.81 2.0 - 7.7 09/03 Specimen Type: BLOOD Comment: Automated Differentia l Performed Ordering Provider: IRENA REYNA Report Released Date/Time: Sep 03, 2021 12:22 PM Reporting Lab: [facility] [address] Performing Lab: [facility] [address] [facility] CBC & DIFF EOSINOPHIL S [#/VOLUME] IN BLOOD BY AUTOMATED COUNT 0.12 0 - 0.5 09/03 Specimen Type: BLOOD Comment: Automated Differentia l Performed Ordering Provider: IRENA REYNA Report Released Date/Time: Sep 03, 2021 12:22 PM Reporting Lab: [facility] [address] Performing Lab: [facility] [address] [facility] CBC & DIFF BASOPHILS [#/VOLUME] IN BLOOD BY AUTOMATED COUNT 0.09 0 - 0.2 09/03 Specimen Type: BLOOD Comment: Automated Differentia l Performed Ordering Provider: IRENA REYNA Report Released Date/Time: Sep 03, 2021 12:22 PM Reporting Lab: [facility] [address] Performing Lab: [facility] [address] [facility] CBC & DIFF IG(META,MY ASHLEY,PRO) 0.4 09/03 Specimen Type: BLOOD Comment: Automated Differentia l Performed Ordering Provider: IRENA REYNA Report Released Date/Time: Sep 03, 2021 12:22 PM Reporting Lab: [facility] [address] Performing Lab: [facility] [address] [facility] CBC & DIFF IMMATURE GRANULOCYT ES [PRESENCE] IN BLOOD BY AUTOMATED COUNT 0.03 0 - 0.1 09/03 Specimen Type: BLOOD Comment: Automated Differentia l Performed Ordering Provider: IRENA REYNA Report Released Date/Time: Sep 03, 2021 12:22 PM Reporting Lab: [facility] [address] Performing Lab: [facility] [address] [facility] EXTRA GOLD GEL TUBE EXTRA GOLD GEL TUBE RECEIVED 09/03 Specimen Type: SERUM No comment entered. Ordering Provider: IRENA REYNA Report Released Date/Time: Sep 03, 2021 12:40 PM Reporting Lab: [facility] [address] Performing Lab: [facility] [address] [facility] PROTHROM BIN TIME/INR INR IN PLATELET POOR PLASMA BY COAGULATIO N ASSAY 0.9 0.8 - 1.1 09/03 Specimen Type: PLASMA No comment entered. Ordering Provider: IRENA REYNA Report Released Date/Time: Sep 03, 2021 12:22 PM Reporting Lab: [facility] [address] Performing Lab: [facility] [address] [facility] PROTHROM BIN TIME/INR PROTHROMBI N TIME (PT) 10.5 9.4 - 12.5 09/03 Specimen Type: PLASMA No comment entered. Ordering Provider: IRENA REYNA Report Released Date/Time: Sep 03, 2021 12:22 PM Reporting Lab: [facility] [address] Performing Lab: [facility] [address] [facility] Vital Signs Combined list of inpatient and outpatient Vital Signs from Department of Defense and Veterans Affairs, ranging from 12 months to all on record, depending upon the facility. Vital Sign Value Date Comments Source Systolic Blood Pressure 164mm[Hg] 11/23/2020 17:21:00 [facility] Diastolic Blood Pressure 110mm[Hg] 11/23/2020 17:21:00 [facility]ulatory [facility] Systolic Blood Pressure 200mm[Hg] 09/03/2021 16:50:00 [facility] Diastolic Blood Pressure 120mm[Hg] 09/03/2021 16:50:00 [facility] Systolic Blood Pressure 133mm[Hg] 05/12/2023 20:04:29 [facility] Diastolic Blood Pressure 94mm[Hg] 05/12/2023 20:04:29 [facility] Systolic Blood Pressure 200mm[Hg] 09/03/2021 16:56:00 [facility]ulatory [facility] Diastolic Blood Pressure 120mm[Hg] 09/03/2021 16:56:00 [facility]ulatory [facility] Systolic Blood Pressure 146mm[Hg] 05/12/2023 19:46:48 [facility]acy Diastolic Blood Pressure 100mm[Hg] 05/12/2023 19:46:48 [facility] Systolic Blood Pressure 171mm[Hg] 04/20/2023 21:55:07 [facility]ulatory Pharmacy Diastolic Blood Pressure 107mm[Hg] 04/20/2023 21:55:07 [facility]ulatory [facility] Systolic Blood Pressure 187mm[Hg] 06/26/2020 16:38:00 [facility]ulatory Pharmacy Diastolic Blood Pressure 107mm[Hg] 06/26/2020 16:38:00 [facility]ulatory [facility]acy Systolic Blood Pressure 196mm[Hg] 11/22/2022 18:55:00 [facility]ulatory Pharmacy Diastolic Blood Pressure 124mm[Hg] 11/22/2022 18:55:00 [facility]ulatory Pharmacy Systolic Blood Pressure 210mm[Hg] 04/20/2023 21:12:00 [facility]ulatory Pharmacy Diastolic Blood Pressure 110mm[Hg] 04/20/2023 21:12:00 Ambulatory Pharmacy Systolic Blood Pressure 150mm[Hg] 11/05/2019 19:37:00 Ambulatory Pharmacy Diastolic Blood Pressure 90mm[Hg] 11/05/2019 19:37:00 Ambulatory Pharmacy SYSTOLIC BLOOD PRESSURE 146 05/12/2023 13:46:48 [facility] DIASTOLIC BLOOD PRESSURE 100 05/12/2023 13:46:48 [facility] PULSE OXIMETRY 98 05/12/2023 13:46:48 [facility] WEIGHT 223.4 05/12/2023 13:46:48 [facility] BMI 32kg/m2 05/12/2023 13:46:48 [facility] PAIN 3 05/12/2023 13:46:48 [facility] HEIGHT 70 05/12/2023 13:46:48 [facility] TEMPERATURE 98.5 05/12/2023 13:46:48 [facility] PULSE 96 05/12/2023 13:46:48 [facility] RESPIRATION 17 05/12/2023 13:46:48 [facility] SYSTOLIC BLOOD PRESSURE 210 04/20/2023 15:12:00 [facility] DIASTOLIC BLOOD PRESSURE 110 04/20/2023 15:12:00 [facility] PULSE OXIMETRY 99 04/20/2023 15[facility]12:00 [facility] TEMPERATURE 98.6 04/20/2023 15:12:00 [facility] PULSE 100 04/20/2023 15:12:00 [facility] SYSTOLIC BLOOD PRESSURE 196 11/22/2022 13:55:00 [facility] DIASTOLIC BLOOD PRESSURE 124 11/22/2022 13:55:00 [facility] PAIN 0 11/22/2022 13:55:00 [facility] TEMPERATURE 97.4 11/22/2022 13:55:00 [facility] PULSE 110 11/22/2022 13[facility]55:00 [facility] RESPIRATION 16 11/22/2022 13:55:00 [facility] Encounters Combined list of: 1) Encounters from Department of Veterans Affairs facilities going back up to thelast 18 months. 2) Encounters from the Department of Defense facilities going back up to 280 months. 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 [facility] [place](B Family Medicine) OUTPATIENT [id number] Respira tory infecti on x 1mo RODGER HENDERSON 06/12 Released w/o Limitations [facility](B Family Medicin e) [facility](Co urage (White) 1007) OUTPATIENT [id number] ROYAL WALKER 08/25 Released w/o Limitations [facility]( Courage (White) 1007) [facility](Au diology [facility] 1523) OUTPATIENT [id number] FFD SIOBHAN Almanzar 08/28 Released w/o Limitations [facility]( Audiolo gy [facility] 1523) [facility](Po diatry Clinic [facility] 1007) OUTPATIENT [id number] new boots evaluat ion TRACE RAMÍREZ 08/30 Released w/o Limitations [facility]( Podiatr y Clinic [facility] 1007) [facility] [facility] OUTPATIENT [id number] AMARILYS Narayan 09/25 Released w/o Limitations [facility] Immuniz ation [facility]) [facility] [facility] OUTPATIENT [id number] chk in FANTASMA PEGUERO 09/25 Released w/o Limitations [facility] [place]([facility]) OUTPATIENT [id number] shoulde r check/b cps refill RAGHAV RUEDA 10/15 Released w/o Limitations [facility] [place](O [facility] Aviatio n Medicin e[facility] [facility]) DENTAL [id number] oper JAYDEN ROUSE([place] 10/30 Released w/o Limitations [facility] [place]([facility]) [facility]([facility]) OUTPATIENT [id number] f/u BP/chol RAGHAV RUEDA 11/01 Released w/o Limitations [facility] [place]([facility] Aviatio n Medicin e) [facility]([facility]) OUTPATIENT [id number] swollen and painful rash on leg x 6 days NOEL CADET 11/26 Released w/o Limitations [facility] [place]([facility] [place] [facility]([facility]) OUTPATIENT [id number] skin rash ROB RAE Valorie 12/09 Released w/o Limitations [facility] [place] [place] [facility]in [facility]) [facility]([facility] Health [facility]ess[facility] t) OUTPATIENT [id number] PHA JAYDEN CHAVIS 02/05 Released w/o Limitations [facility] [place](O h [facility] Health Assessm ent) [facility]([facility]) OUTPATIENT [id number] f/u RAGHAV RUEDA 02/12 Released w/o Limitations [facility] [place]([facility] [place] [facility]) [facility] OUTPATIENT [id number] dizzine ss DELVIN PICHARDO 02/15 Released w/o Limitations [facility] [place]) [facility] OUTPATIENT [id number] SORE THROAT/ NAUSEA NESTOR YADAV 04/03 Released w/o Limitations [facility]([facility]) OUTPATIENT [id number] cold sx x 1 week ROOPA NAIR 04/08 Sick at Home/Quarter s [facility] [place] [facility]in [facility]) [facility]([facility]) OUTPATIENT [id number] mole check/m ed MOISES Yusuf 05/08 Released w/o Limitations [facility] [place] [facility]) [facility]([facility]) OUTPATIENT [id number] hbp f/u MARIA FERNANDA FLOWERS 06/09 Released w/o Limitations [facility] [place] [facility]in [facility]) [facility] OUTPATIENT [id number] pain in right hand FAINA ZANE A 07/30 Released w/o Limitations [facility] OUTPATIENT [id number] right hand injury MOISES BUSTOS 08/08 Released w/o Limitations [facility] Aviatio n Medicin e) [facility]ess[facility] ) OUTPATIENT [id number] Tobacco Cessati on JHONY AN([place]) 10/29 Released w/o Limitations [facility](O h Tobacco Cessati on) [facility]) OUTPATIENT [id number] F/U SUAD ANN 11/07 Released w/o Limitations [facility] Aviatio n Medicin e) [facility] OUTPATIENT [id number] SCREENI TYLER RAMIREZ 12/22 [facility]ased w/o Limitations [facility] ) [facility] OUTPATIENT [id number] TEENAI TYLER RAMIREZ 12/25 [facility]ased w/o Limitations 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 JEROME 12/26 Released w/o Limitations [facility] OUTPATIENT [id number] LIP SCREENI TYLER RODRIGUEZ 12/31 Released w/o Limitations [facility] ) [facility] OUTPATIENT [id number] ST/COUG H/FATIG UE ZANE EISENBERG A 01/13 Sick at Home/Quarter s [facility]) [facility]) OUTPATIENT [id number] SQUADRO N JAYDEN AMEZCUA 03/17 Released w/o Limitations [facility](O h [facility] Health Assessm ent) [facility]([facility]) OUTPATIENT [id number] LISA HALL 03/17 Released w/o Limitations [facility]([facility]) OUTPATIENT [id number] abnorma l SEMAJ LYONS 03/18 Released w/o Limitations [facility] Aviatio n Medicin e) [facility] OUTPATIENT [id number] NUMBNES S NECK/DI RUTH APARICIO 06/03 Released w/o Limitations [facility]) [facility] OUTPATIENT [id number] F/U CELLULI TIS [facility] SHANNAN DUNHAM 03/22 Released w/o Limitations [facility] [place]) [facility] OUTPATIENT [id number] F/U CELLULI TIS YUMIKO TORREZ 03/23 Sick at Home/Quarter s [facility]) [facility] OUTPATIENT [id number] NAUSEA/ VOMITIN G MAYO FREEMAN 03/24 Sick at Home/Quarter s [facility]) [facility] Referral) TELE CONSULT [id number] [facility] - ERV - 011 RUTH RUSSELL 03/24 [facility](O H Referra l) [facility]([facility]) OUTPATIENT [id number] f/u from [facility] for possibl e JORY LINK 03/26 Released w/o Limitations [facility](O [facility]iatio n Medicin e) [facility]([facility]) OUTPATIENT [id number] F/U STAPH INFECTI ON RICHA GIL 04/02 Released w/o Limitations [facility]in [facility]) [facility] [facility]) OUTPATIENT [id number] Nodule left forearm inferio r to elbow FROSOREGINA RG A 04/07 Released w/o Limitations [facility]) [facility] Referral) TELE CONSULT [id number] [facility] - ERV - 011 RUTH RUSSELL 04/14 [facility](O H Referra l) [facility] OUTPATIENT [id number] SHARIF Crow [facility] SH[facility] DUNHAM 05/04 Released w/o Limitations [facility]) [facility]([facility]) OUTPATIENT [id number] numbnes s on toes JORY MAYERS 05/11 Released w/o Limitations [facility] Aviatio n Medicin e) [facility]([facility]) OUTPATIENT [id number] F/U BLOOD WORK RICHA GIL 05/19 Released w/o Limitations [facility] Aviatio n Medicin e) [facility]([facility]) OUTPATIENT [id number] PARFQ JAY GIL 06/11 Released w/o Limitations [facility] n Medicin [facility]) [facility] [facility] OUTPATIENT [id number] KENDRA Dias 06/15 Released w/o Limitations [facility]ion [facility]) [facility]([facility]) OUTPATIENT [id number] hcp/aud io AMARILYS VALENTIN 06/16 Released w/o Limitations [facility] [place]) [facility]([facility]) OUTPATIENT [id number] part 2 sep DAVID PICHARDO 06/18 Released w/o Limitations [facility] [place]([facility]in [facility]) [facility]([facility]) OUTPATIENT [id number] HTN Med Refill JAY GIL 06/22 Released w/o Limitations [facility] [place]([facility] [place] [facility]in [facility]) [facility]([facility]) OUTPATIENT [id number] LASHAY VILLANUEVA([place]) 06/22 Released w/o Limitations [facility] [place] [facility]in [facility]) [facility] OUTPATIENT [id number] TMJ CONCERN S DAYO ACOSTA 07/05 Released w/o Limitations [facility] [place]) [facility] Referral) TELE CONSULT [id number] [facility] - ERV - 011 RUTH RUSSELL 07/06 [facility](O H Referra l) [facility]([facility] [place] [facility]) OUTPATIENT [id number] SKIN NEOPLAS M UNCERTA IN BEHAVIO R ALVINO JOHNSON 07/19 Released w/o Limitations [facility](B remerto n Dermato logy) [facility]([facility]) TELE CONSULT [id number] abnorma l LASHAY Ortega([place]) 07/21 [facility]) [facility]) OUTPATIENT [id number] JAY Powell([place]) 07/23 Released w/o Limitations [facility]) [facility]) OUTPATIENT [id number] re-michellei JAYDEN Das 08/06 Released w/o Limitations [facility]) [facility]) TELE CONSULT [id number] colpo results JAY MACKENZIE([place]) 08/09 [facility]) [facility] OUTPATIENT [id number] WRIST ZANE ALMEIDA 10/18 Released w/o Limitations [facility]) [facility]([place] Ref[place]) TELE CONSULT [id number] [facility] - ERV - 011 RUTH RUSSELL 10/19 [facility](O H Referra l) [facility]) OUTPATIENT [id number] weak RICHA Prince 10/22 Released w/o Limitations [facility](O vt [facility]) [facility] OUTPATIENT [id number] eye pain TAMAR PAK 10/25 Released w/o Limitations [facility] Ref[place]) TELE CONSULT [id number] MRI Results RODGER ELLIOTT 11/02 [facility](O H Referra l) [facility]) OUTPATIENT [id number] f/u hbp RICHA GIL 11/04 Released w/o Limitations [facility]) MS GILMER Weaver([facility]) OUTPATIENT [id number] facial rash/di scuss BP meds/re fill CHEIKH GUADALUPE 12/15 Released w/o Limitations MS Owen CA([facility]) [facility]([place] Ref[place]) TELE CONSULT [id number] Cardiol ogy results RODGER ELLIOTT 12/28 [facility](O H Referra l) [facility] OUTPATIENT [id number] SORE THROAT/ RASH FAINAZANE A 01/12 Released w/o Limitations [facility]) OUTPATIENT [id number] cold like Sx x2 days ABIOLA VILLEDA 01/17 Sick at Home/Quarter s [facility] [facility] OUTPATIENT [id number] SINUS PAIN GRETA JEFFERY 01/18 Sick at Home/Quarter s [facility]) [facility] OUTPATIENT [id number] DOUBLE VISION DAYO ACOSTA 01/21 Released w/o Limitations [facility]) [facility]) OUTPATIENT [id number] hbp PABLITO MITCHELL 02/02 Released w/o Limitations [facility]) [facility] OUTPATIENT [id number] PAPA CARLSON 02/07 Released w/o Limitations [facility](O h [facility] Ass[facility]m ent) [facility]) OUTPATIENT [id number] FANTASMA RUVALCABA 02/07 Released w/o Limitations [facility]) [facility] TELE CONSULT [id number] [facility] - ER[facility] - 011 RUTH RUSSELL 02/07 [facility](O H Referra l) [facility]) OUTPATIENT [id number] skin pain CLIFF KRAMER 02/14 Released w/o Limitations [facility]) [facility]) OUTPATIENT [id number] f/u HBP RICHA GIL 02/16 Released w/o Limitations [facility]) [facility] TELE CONSULT [id number] [facility] - 011 RUTH RUSSELL 02/17 [facility](O H Referra l) [facility] OUT[facility]IENT [id number] FATIGUE JULIA SAVAGE R 03/11 Released w/o Limitations [facility](R heumato logy) [facility] ) TELE CONSULT [id number] swollen but not painful gland on chinjus t for info JULIA SAVAGE R 03/15 [facility](R heumato logy) [facility]) OUTPATIENT [id number] swollen neck glands, sinus pressur e x 2 days RICHA GIL 03/17 Released w/o Limitations [facility] [facility]) [facility] OUTPATIENT [id number] MAYO CAMARA 03/21 Released w/o Limitations [facility]) [facility] TELE CONSULT [id number] [facility] - 012 RUTH RUSSELL 04/21 [facility](O H Referra l) [facility] Tobacco Cessation ) OUTPATIENT [id number] Tobacco Cessati on JHONY AN([place]) 05/10 Released w/o Limitations [facility](O h Tobacco Cessati on) [facility]) OUTPATIENT [id number] headach e, vomitti ng, pain x 1 day JAY BRIDGES 05/30 Released w/o Limitations [facility]) [facility]) OUTPATIENT [id number] ear issues CYRUSJAY 06/01 Released w/o Limitations [facility](O [facility] n Medicin [facility]) [facility]) OUTPATIENT [id number] [facility] 07/27 Released w/o Limitations [facility](O [facility] n Medicin e) [facility] [facility]) OUTPATIENT [id number] Notes Entered by: KELSEY GONZALEZ 28 Jul 2011 1116 ------- ------- ------- ------- -- pneumov ax ROXY GRAHAM 07/27 Released w/o Limitations [facility] Immun[facility] at[facility]) [facility] OUTPATIENT [id number] BROKE OFF TOOTH/M OUTH PAIN TAMAR PAK 09/14 Released w/o Limitations [facility]) [facility]) OUTPATIENT [id number] Lower back pain CLIFF KRAMER 09/27 Released w/o Limitations [facility](O [facility] Aviatio n Medicin e) [facility]) OUTPATIENT [id number] JENIFER Melissa 01/29 Released w/o Limitations [facility](O [facility] n Medicin e) [facility]) OUTPATIENT [id number] EDER MICHELE 02/05 Released w/o Limitations [facility](O [facility]) [facility]) OUTPATIENT [id number] OM FANTASMA RUVALCABA 02/05 Released w/o Limitations [facility]) [facility] OUTPATIENT [id number] Notes Entered by: YADIRA ESPINO 20 Mar 2012 1949 ------- ------- ------- ------- -- RASH RT DELVIN FOY 03/21 Released w/o Limitations [facility]) [facility] [place] [facility]) OUTPATIENT [id number] Notes Entered by: Danita VIORY 22 Mar 2012 0831 ------- ------- ------- ------- -- SAAR ACOSTA 03/22 Sick at Home/Quarter s [facility] [place] OUTPATIENT [id number] well woman/ noticea ble lump on rt upper brst. MIKE COBURN 03/29 Released w/o Limitations [facility](O [facility] Aviatio n Medicin e) [facility] [place] OUTPATIENT [id number] MEDx RE-EVAL DILTIAZ EM 240MG ANISHA SUÁREZ 10/16 Released w/o Limitations [facility](O vt [facility] [facility]) [facility] [place] OUTPATIENT [id number] Notes Entered by: YADIRA ESPINO 22 Oct 2012 1550 ------- ------- ------- ------- -- N/V/MAYO MEDINA 10/22 Sick at Home/Quarter s [facility] [place] TELE CONSULT [id number] Notes Entered by: JHOANA DUDLEY 30 Jan 2013 1507 ------- ------- ------- ------- -- Knee pain needs tylenol JHOANA GOMEZ 01/30 [facility] [place] [facility]) [facility]) OUTPATIENT [id number] JAYDEN Amezcua 02/20 Released w/o Limitations [facility](O h [facility] Health Assessm ent) [facility] [place] OUTPATIENT [id number] Notes Entered by: GRAHAM GRANADOS 13 Mar 2013 1751 ------- ------- ------- ------- -- JAW/GUM S PAIN DELVIN PICHARDO 03/14 Sick at Home/Quarter s [facility]) [facility] [place]([facility]) OUTPATIENT [id number] REQUEST RHEUMAT MARGOT BYRD([facility] 03/20 Released w/o Limitations [facility] [place] [facility]) [facility](NI Fam Med [facility] Tm 2) OUTPATIENT [id number] flu sx X10 days LESLIE ALBERTO 03/29 Released w/o Limitations [facility](N I Fam Med [facility] Tm 2) [facility] [place]([facility] umatology ) OUTPATIENT [id number] Sicca syndrom e HUSSEINJULIA R 04/09 Released w/o Limitations [facility](R gaby porter) [facility] [place]([facility]) OUTPATIENT [id number] LASHAY VILLANUEVA([place]) 05/27 Released w/o Limitations [facility] [facility]in [facility]) [facility] [place] Ref[place]) TELE CONSULT [id number] Notes Entered by: KACY MADISON 26 Jun 2013 1330 ------- ------- ------- ------- -- [facility] ERV DOS 13 JUN 2013 KACY MADISON 06/26 [facility](O Referra graham) [facility] [place]([facility]) TELE CONSULT [id number] Notes Entered by: LASHAY HALLMAN 27 Jun 2013 1002 ------- ------- ------- ------- -- Normal Pap (third normal after previou s ELISA 1). LASHAY HALLMAN([place]) 06/27 [facility] [facility]) [facility]) OUTPATIENT [id number] SEP PHYS ANISHA SUÁREZ 06/28 Released w/o Limitations [facility] [place] [facility]in [facility]) [facility] OUTPATIENT [id number] Notes Entered by: AMARILYS VALENTIN 28 Jun 2013 0909 ------- ------- ------- ------- -- 503 AMARILYS VALENTIN 06/28 Released w/o Limitations [facility](O [facility] Conserv [facility]) [facility]) TELE CONSULT [id number] Notes Entered by: TRAV DOMINGUEZ 04 Jul 2013 0714 ------- ------- ------- ------- -- Medicat ion Refill SARAH DOMINGUEZ 07/04 [facility] [facility]) [facility]) OUTPATIENT [id number] Headach e, sinus pressur e, fevers (not improvi ng) x 2 weeks TAMAR HAMM 07/08 Sick at Home/Quarter s [facility] [place] [facility] n Medicin e) [facility] Outpatient Encounter [id number] 09/20 [facility] En[facility] [id number] CHELSY RIVERA 11/21 [facility] EM[facility]ENCY [facility] VISIT LOW MDM [id number] Diagnos is: ICD-10- CM U07.1 COVID-1 9
AYDEN DOUGHERTY 11/22 [facility] [place] [facility] En[facility] [id number] 11/22 [facility] Ambulator y Pharmacy Lifetime Pharmacy [id number] 370 04/03 [facility] [place] [facility]Y [facility] VISIT LOW MDM [id number] Diagnos is: ICD-10- CM I10 Essenti al (primar y) hyperte nsion<b r/> LLOYD GARZA 04/20 [facility] [place] [facility] Outpatient Encounter [id number] HOSEA PRESCOTT 04/24 [facility] Encounter [id number] 05/03 [facility] OFF[facility] [place]/P [place] 60 MIN [id number] Diagnos is: ICD-10- CM I10 Essenti al (primar y) hyperte nsion<b r/> MIKE LLOYD 05/11 [facility] Procedures Combined list of: 1) Procedures from Department of [facility] Affairs [facility], not all [place] non-surgical procedures are included; 2) All procedures from the Department of Defense facilities. Procedure Procedure Type Code Date Perfomer Comments Sourc e REPAIR, COMPLEX, TRUNK; 2.6 CM TO 7.5 CM Repair, complex, trunk; 2.6 cm to 7.5 cm 37631 2018 Ambulatory Pharmacy Patient Counseling Medical Management Individual Patient Patient Counseling Medical Management Individual Patient [id number] 2013 AMARILYS VALENTIN Audiometry Group Testing Audiometry Group Testing 66652 2013 AMARILYS VALENTIN Psychotherapy Individual Approximately 60 Minutes 2013 MIKE WHITEHEAD Psychotherapy Individual Approximately 60 Minutes 2013 MIKE WHITEHEAD Physician Supervised Specimen Handling / Transfer: Office To Lab Physician Supervised Specimen Handling / Transfer: Office To Lab 90988 2013 LASHAY HALLMAN Elliot Screening papanicolaou smear; obtaining, preparing and conveyance of cervical or vaginal smear to laboratory 2013 LASHAY HALLMAN) [place] Psychotherapy Individual Approximately 45 Minutes Psychotherapy Individual Approximately 45 Minutes [id number] 2013 MIKE WHITEHEAD Physician Supervised Services Provision Of Educational Supplies Physician Supervised Services Provision Of Educational Supplies 17346 2012 PARAMJIT STEPHENS Tonometry Tonometry 47827 2012 PARAMJIT STEPHENS Screening Test Of Visual Acuity, Quantitative, Bilateral Screening Test Of Visual Acuity, Quantitative, Bilateral 89225 2012 PARAMJIT STEPHENS Psychotherapy Individual Approximately 60 Minutes 2012 MIKE WHITEHEAD Psychotherapy Individual Approximately 45 Minutes 2012 MIKE WHITEHEAD Psychotherapy Individual Approximately 45 Minutes 2012 MIKE WHITEHEAD Psychotherapy Indiv Interactive Approx 45 Minutes Psychotherapy Indiv Interactive Approx 45 Minutes [id number] 2012 MIKE WHITEHEAD This note was completed in time and then signed again after procedure code error was fixed due to problems with [employer] system. [employer] Psychotherapy Individual Approximately 30 Minutes Psychotherapy Individual Approximately 30 Minutes [id number] 2012 MIKE WHITEHEAD Seen [phone] [facility] Cervical Pap Smear Cervical Pap Smear 38397 2012 MIKE COBURN Screening papanicolaou smear; obtaining, preparing and conveyance of cervical or vaginal smear to laboratory 2012 MIKE COBURN Physician Supervised Specimen Handling / Transfer: Office To Lab Physician Supervised Specimen Handling / Transfer: Office To Lab 45349 2012 MIKE COBURN Tonometry Tonometry 17936 2011 EDER VALENZUELA Screening Test Of Visual Acuity, Quantitative, Bilateral Screening Test Of Visual Acuity, Quantitative, Bilateral 35517 2011 EDER VALENZUELA Physician Supervised Services Provision Of Educational Supplies Physician Supervised Services Provision Of Educational Supplies 30758 2011 EDER VALENZUELA Psychiatric Diagnostic Evaluation Comprehensive Examination Psychiatric Diagnostic Evaluation Comprehensive Examination 95185 2011 ROSSI CLEMENT [facility] Pneumococcal Polysaccharide Vaccine 23 Valent Intramuscular Pneumococcal Polysaccharide Vaccine 23 Valent Intramuscular 80006 2011 ROXY GRAHAM [facility] Immunization Administration By Injection, One Vaccine Immunization Administration By Injection, One Vaccine 80844 2011 ORXY GRAAHM [facility] Screening papanicolaou smear; obtaining, preparing and conveyance of cervical or vaginal smear to laboratory 2011 LASHAY HALLMAN) [facility] Health And Behav Intervention, Each Additional 15 Min Grp (2 Or More) Health And Behav Intervention, Each Additional 15 Min Grp (2 Or More) 13067 2011 JHONY AN) [facility] current smoker current smoker 1034F 2011 JHONY AN) [facility] Celestine guillory ment Of Tobacco Use Assessment Of Tobacco Use 1000F 2011 JHONY AN) [facility] Physician Supervised Services Provision Of Educational Supplies Physician Supervised Services Provision Of Educational Supplies 50157 2011 JHONY AN) [facility] Physician Supervised Services Provision Of Educational Supplies Physician Supervised Services Provision Of Educational Supplies 45102 2010 STEPHEN RIVERA [facility] Tonometry Tonometry 83204 2010 STEPHEN RIVERA [facility] Screening Test Of Visual Acuity, Quantitative, Bilateral Screening Test Of Visual Acuity, Quantitative, Bilateral 58130 2010 STEPHEN RIVERA [facility] Venipuncture Venipuncture 86634 2010 DAYO MORALEZ [facility] ECG 12-Lead ECG 12-Lead 3120F 2010 CHEIKH GUADALUPE EKG: NSR, rate of 75, normal axis, interval wnl. NO st/t wave abnormalites . incomplete RBB noted. [facility] Psychiatric Diagnostic Evaluation Comprehensive Examination Psychiatric Diagnostic Evaluation Comprehensive Examination 89082 2010 CHEIKH TAVAREZ [facility] Colposcopy Cervix With Biopsy(s) With Endocervical Curettage Colposcopy Cervix With Biopsy(s) With Endocervical Curettage 60852 2010 JAY MACKENZIE) [facility] Open Treatment Of Fracture Of The Ulnar Shaft 2010 LASHAY HALLMAN) [facility] Screening papanicolaou smear; obtaining, preparing and conveyance of cervical or vaginal smear to laboratory 2010 LASHAY HALLMAN(LOS) [facility] Threshold Audiogram (Pure Tone) Threshold Audiogram (Pure Tone) 19926 2010 AMARILYS VALENTIN [facility] Skin Test Anergy Tuberculin Intradermal Skin Test Anergy Tuberculin Intradermal 96720 2010 KENDRA WELSH [facility] Physician Supervised Specimen Handling / Transfer: Office To Lab Physician Supervised Specimen Handling / Transfer: Office To Lab 35400 2010 SHANNAN DUNHAM [facility] Intravenous Catheter Placement Intravenous Catheter Placement 40299 2010 SHANNAN DUNHAM [facility] Excision Of Lesion Arms Benign 1.1 to 2cm Excision Of Lesion Arms Benign 1.1 to 2cm 44215 2010 REGINA WOOD [facility] Behavioral health prevention education service (delivery of services with target population to affect knowledge, attitude and/or behavior) 2009 TEOFILO EDGE [facility] Behavioral health prevention education service (delivery of services with target population to affect knowledge, attitude and/or behavior) 2009 TEOFILO EDGE [facility] Behavioral health prevention education service (delivery of services with target population to affect knowledge, attitude and/or behavior) 2009 TEOFILO EDGE [facility] Electrocardiogram Electrocardiogram 01743 06/03 RUTH GUTIERREZ [facility] Behavioral health screening to determine eligibility for admi ion to treatment program 2009 TEOFILO EDGE [facility] Tonometry Tonometry 89077 2009 EDGARDO PEDROZA [facility] Skin Test Anergy Tuberculin Intradermal Skin Test Anergy Tuberculin Intradermal 58965 2009 EDGARDO PEDROZA Screening Test Of Visual Acuity, Quantitative, Bilateral Screening Test Of Visual Acuity, Quantitative, Bilateral 68726 2009 EDGARDO PEDROZA [facility] Physician Supervised Services Provision Of Educational Supplies Physician Supervised Services Provision Of Educational Supplies 77807 2009 EDGARDO PEDROZA [facility] Behavioral health screening to determine eligibility for admi ion to treatment program 2008 PEDRO LILLY [facility] current smoker current smoker 1034F 2008 JHONY AN) [facility] A e ment Of Tobacco Use Assessment Of Tobacco Use 1000F 2008 JHONY AN) [facility] Physician Supervised Services Provision Of Educational Supplies Physician Supervised Services Provision Of Educational Supplies 59990 2008 JHONY AN([place]) [facility] Electrocardiogram Electrocardiogram 48532 02/15 DELVIN PICHARDO. [facility] Screening Test Of Visual Acuity, Quantitative, Bilateral Screening Test Of Visual Acuity, Quantitative, Bilateral 74292 2007 JAYDEN CHAVIS [facility] Physician Supervised Services Provision Of Educational Supplies Physician Supervised Services Provision Of Educational Supplies 48183 2007 JAYDEN CHAVIS [facility] Tonometry Tonometry 36633 2007 JAYDEN CHAVIS [facility] Vaccines Viral Yellow Fever Vaccines Viral Yellow Fever 92980 2007 AMARILYS VALENTIN [facility] Immunization Administration By Injection, One Vaccine Immunization Administration By Injection, One Vaccine 04606 2007 AMARILYS VALENTIN [facility] Orthopedic shoe addition, sole, half 2006 TRACE RAMÍREZ Lift, elevation, heel and sole, cork, per inch 2006 TRACE RAMÍREZ Skin Debridement Left Foot Skin Debridement Left Foot 82905 2006 TRACE RAMÍREZ A Elliot Skin Debridement Right Foot Skin Debridement Right Foot 37416 2006 TRACE RAMÍREZ [facility] Tympanometry Tympanometry 94672 2006 SIOBHAN SALDIVAR Threshold Audiogram (Pure Tone) Threshold Audiogram (Pure Tone) 60358 2006 SIOBHAN SALDIVAR [facility] 12-LEAD ECG PERFORMED (EM) 2010 [facility] ORAL THERMOMETER, REUSABLE, ANY TYPE, EACH 2006 [facility] TYPHOID VACCINE, CAPSULAR POLYSACCHARIDE (VICPS), FOR INTRAMUSCULAR USE 2006 [facility] [facility] ORTHOPEDIC SHOE ADDITION, SOLE, HALF 2006 [facility] SCREENING PAPANICOLAOU SMEAR; OBTAINING, PREPARING AND CONVEYANCE OF CERVICAL OR VAGINAL SMEAR TO LABORATORY 2006 [facility] SCREENING TEST OF VISUAL ACUITY, QUANTITATIVE, BILATERAL 2006 [facility] TYMPANOMETRY (IMPEDANCE TESTING) 2006 [facility] AUDIOMETRIC TESTING OF GROUPS 2006 [facility] COLLECTION OF VENOUS BLOOD BY VENIPUNCTURE 2006 [facility] SKIN TEST; TUBERCULOSIS, INTRADERMAL 2006 [facility] EDUCATION &TRAINING, PATIENT SELF-MGT QUALIFIED, NONPHYSICIAN HEALTH ORTHOPEDIC NURSE USING STDIZED CURRICULUM, [id number] W THE PATIENT (COULD INCL CAREGIVER/FAMILY) EA 30 MIN; INDIVIDUAL PATIENT 2013 [facility] PSYCHOTHERAPY, 60 MINUTES WITH PATIENT 2013 [facility] PSYCHOTHERAPY, 60 MINUTES WITH PATIENT 2013 [facility] HANDLING AND/OR CONVEYANCE OF SPECIMEN FOR TRANSFER FROM THE OFFICE TO A LABORATORY 2013 [facility] SERIAL TONOMETRY (SEP PROC) WITH MULT LAURA OF INTRAOCULAR PRESSURE OVER EXTENDED TIME PERIOD W/ INTERP & REPORT, SAME DAY (EG, DIURNAL CURVE OR MEDICAL TX OF ACUTE ELEVATION OF INTRAOCULAR PRESSURE) 2012 [facility] PSYCHOTHERAPY, 60 MINUTES WITH PATIENT 2012 [facility] PSYCHOTHERAPY, 45 MINUTES WITH PATIENT 2012 [facility] PSYCHOTHERAPY, 45 MINUTES WITH PATIENT 2012 [facility] INDIVIDUAL PSYCHOTHERAPY, INSIGHT ORIENTED, BEHAVIOR MODIFYING AND/OR SUPPORTIVE, IN AN OFFICE OR OUTPATIENT FACILITY, APPROXIMATELY 45 TO 50 MINUTES [id number] WITH THE PATIENT 2012 [facility] INDIVIDUAL PSYCHOTHERAPY, INSIGHT ORIENTED, BEHAVIOR MODIFYING AND/OR SUPPORTIVE, IN AN OFFICE OR OUTPATIENT FACILITY, APPROXIMATELY 20 TO 30 MINUTES [id number] WITH THE PATIENT 2012 [facility] SCREENING PAPANICOLAOU SMEAR; OBTAINING, PREPARING AND CONVEYANCE OF CERVICAL OR VAGINAL SMEAR TO LABORATORY 2012 [facility] EDUCATIONAL SUPPLIES, SUCH BOOKS, TAPES, AND PAMPHLETS, FOR THE PATIENT'S EDUCATION AT COST TO PHYSICIAN OR OTHER QUALIFIED HEALTH ORTHOPEDIC NURSE 2011 [facility] PNEUMOCOCCAL POLYSACCHARIDE VACCINE, 23-VALENT (PPSV23), ADULT OR IMMUNOSUPPRESSED PATIENT DOSAGE, WHEN ADMINISTERED TO INDIVIDUALS 2 YEARS OR OLDER, FOR SUBCUTANEOUS OR INTRAMUSCULAR USE 2011 [facility] SCREENING PAPANICOLAOU SMEAR; OBTAINING, PREPARING AND CONVEYANCE OF CERVICAL OR VAGINAL SMEAR TO LABORATORY 2011 [facility] PSYCHIATRIC DIAGNOSTIC INTERVIEW EXAMINATION 2011 [facility] HEALTH AND BEHAVIOR INTERVENTION, EACH 15 MINUTES, [id number]; GROUP (2 OR MORE PATIENTS) 2011 [facility] EDUCATIONAL SUPPLIES, SUCH BOOKS, TAPES, AND PAMPHLETS, FOR THE PATIENT'S EDUCATION AT COST TO PHYSICIAN OR OTHER QUALIFIED HEALTH ORTHOPEDIC NURSE 2010 [facility] VENIPUNCTURE,AGE 3 YEARS/OLDER,NECESSI TATING THE SKILL OF A PHYSICIAN/OTHER QUALIFIED HEALTH ORTHOPEDIC NURSE (SEP PROC),FOR DIAGNOSTIC/THERAPEU TIC PURPOSES (NOT TO BE USED FOR ROUTINE VENIPUNCTURE) 2010 [facility] HANDLING AND/OR CONVEYANCE OF SPECIMEN FOR TRANSFER FROM THE OFFICE TO A LABORATORY 2010 [facility] PSYCHIATRIC DIAGNOSTIC INTERVIEW EXAMINATION 2010 [facility] COLPOSCOPY OF THE CERVIX INCLUDING UPPER/ADJACENT VAGINA; WITH BIOPSY(S) OF THE CERVIX AND ENDOCERVICAL CURETTAGE 2010 [facility] SCREENING PAPANICOLAOU SMEAR; OBTAINING, PREPARING AND CONVEYANCE OF CERVICAL OR VAGINAL SMEAR TO LABORATORY 2010 [facility] PURE TONE AUDIOMETRY (THRESHOLD); AIR ONLY 2010 [facility] SKIN TEST; TUBERCULOSIS, INTRADERMAL 2010 [facility] HANDLING AND/OR CONVEYANCE OF SPECIMEN FOR TRANSFER FROM THE OFFICE TO A LABORATORY 2010 [facility] EXCISION, BENIGN LESION INCLUDING MARGINS, EXCEPT SKIN TAG (UNLESS LISTED ELSEWHERE), TRUNK, ARMS OR LEGS; EXCISED DIAMETER 1.1 TO 2.0 CM 2010 [facility] BEHAVIORAL HEALTH PREVENTION EDUCATION SERVICE (DELIVERY OF SERVICES WITH TARGET POPULATION TO AFFECT KNOWLEDGE, ATTITUDE AND/OR BEHAVIOR) 2009 [facility] BEHAVIORAL HEALTH PREVENTION EDUCATION SERVICE (DELIVERY OF SERVICES WITH TARGET POPULATION TO AFFECT KNOWLEDGE, ATTITUDE AND/OR BEHAVIOR) 2009 [facility] BEHAVIORAL HEALTH PREVENTION EDUCATION SERVICE (DELIVERY OF SERVICES WITH TARGET POPULATION TO AFFECT KNOWLEDGE, ATTITUDE AND/OR BEHAVIOR) 2009 [facility] BEHAVIORAL HEALTH PREVENTION EDUCATION SERVICE (DELIVERY OF SERVICES WITH TARGET POPULATION TO AFFECT KNOWLEDGE, ATTITUDE AND/OR BEHAVIOR) 2009 [facility]D BEHAVIORAL HEALTH PREVENTION EDUCATION SERVICE (DELIVERY OF SERVICES WITH TARGET POPULATION TO AFFECT KNOWLEDGE, ATTITUDE AND/OR BEHAVIOR) 2009 [facility] ELECTROCARDIOGRAM, ROUTINE ECG WITH AT LEAST 12 LEADS; WITH INTERPRETATION AND REPORT 2009 [facility] BEHAVIORAL HEALTH SCREENING TO DETERMINE ELIGIBILITY FOR ADMISSION TO TREATMENT PROGRAM 2009 [facility] SERIAL TONOMETRY (SEP PROC) WITH MULT LAURA OF INTRAOCULAR PRESSURE OVER EXTENDED TIME PERIOD W/ INTERP & REPORT, SAME DAY (EG, DIURNAL CURVE OR MEDICAL TX OF ACUTE ELEVATION OF INTRAOCULAR PRESSURE) 2009 [facility] HANDLING AND/OR CONVEYANCE OF SPECIMEN FOR TRANSFER FROM THE OFFICE TO A LABORATORY 2008 [facility] BEHAVIORAL HEALTH SCREENING TO DETERMINE ELIGIBILITY FOR ADMISSION TO TREATMENT PROGRAM 2008 [facility] CURRENT TOBACCO SMOKER (CAD, CAP, COPD, PV) (DM) 2008 [facility] ELECTROCARDIOGRAM, ROUTINE ECG WITH AT LEAST 12 LEADS; WITH INTERPRETATION AND REPORT 2007 [facility] SERIAL TONOMETRY (SEP PROC) WITH MULT LAURA OF INTRAOCULAR PRESSURE OVER EXTENDED TIME PERIOD W/ INTERP & REPORT, SAME DAY (EG, DIURNAL CURVE OR MEDICAL TX OF ACUTE ELEVATION OF INTRAOCULAR PRESSURE) 2007 [facility] CURRENT TOBACCO SMOKER (CAD, CAP, COPD, PV) (DM) 2007 [facility] YELLOW FEVER VACCINE, LIVE, FOR SUBCUTANEOUS USE 2007 [facility] NONINVASIVE EAR OR PULSE OXIMETRY FOR OXYGEN SATURATION; SINGLE DETERMINATION 2006 [facility] Social History Combined list of available smoking, tobacco, and other social history from [facility] of Defense and Veterans Affairs facilities. 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 DoD Assessment and Plan Combined list of future care activities from Department of Defense and Veterans Affairs facilities (e.g., assessment and plan notes, appointments, orders, and referrals). Additional future care activities may be listed in the Plan of Care section. Result Assessment and Plan Date Source Assessment and Plan No data available for this section 06/19/2023 [facility] Advance Directives List of completed, amended, or rescinded Advance Directives on record at Department of Veterans Affairs facilities. An actual copy of the Directive is not included. Date Advance Directive Provider Source 09/13/2018 ADVANCE DIRECTIVE DISCUSSION BRADY NICK [facility] Functional Status Combined list of recent functional and cognitive assessments recorded at [facility] Defense and [facility] (VA).NM Functional [place] Measurement (FIM) Scale: 1 = Total Assistance (Subject = 0% +), 2 = Maximal Assistance (Subject = 25% +), 3 = Moderate Assistance (Subject = 50% +), 4 = Minimal Assistance (Subject = 75% +), 5 = Supervision, 6 = Modified [place] (Device), 7 = Complete [place] (Timely, Safely). Assessment Date/Time Source Assessment Type Assessment Skill Assessment Score Assessment Details No data available for this section
--- OUTSIDE RECORDS SUMMARY | 2023-06-19 13:06 | XMS_ITS | Encounter Summary ---
Author Name [facility] Organization [facility] Address [address] [place] [address] Support Name Relationship Address Phone SHERITA FAVIOLA Next of Kin [address] [place] [address] FAVIOLA MAGALLON Emergency Contact [address], [place] [phone] JOSE ELIAS LANDON Next of Kin [address] [facility] [place], [place] ISSAC LANDON Emergency Contact [address] [facility] [place] Selected Encounter This section includes the information on record at [place] for the Encounter. Date/Time Encounter Type Encounter Description Reason Pro vider Source Nov 22, 2022 02:27 PM Outpatient Encounter CLINICAL PHARMACY [facility] Encounter Template Text not used by [place] Plan of Treatment: Future Appointments (+ 6 months) and Future Tests (+/- 45 days) The Plan of Treatment section includes future care activities for the patient from all [place] treatmentfacilities. This section includes future appointments and future orders which are active, pending or scheduled. Future Appointments This section includes appointments that were scheduled to occur 6 months from the date of the Encounter, up to a maximum of 20 appointments. The data comes from all [place] treatment facilities. Appointment Date/Time Appointment Type Appointme nt Facility Name Apr 20, 2023 03:07 PM AMBULATORY - MEDICINE [facility] Apr 24, 2023 10:00 AM AMBULATORY - NONE [facility] May 12, 2023 02:00 PM AMBULATORY - MEDICINE [facility] Vital Signs: All taken on the encounter date This section contains inpatient and outpatient Vital Signs collected on the date of the Encounter. Date/Time Temperature Pulse Blood Pressure Respiratory Rate SP02 Pain Height Weight Body Mass Index Source Nov 22, 2022 01:55 PM 97.4 F 110 /min 196/124 mm[Hg] 16 /min 0 [place] [facility] Advance Directives: All historical and current Section Date Range: From patient's date of to the date document was created. This section includes ALL of a patient's completed or amended [place] Advance and Rescinded Directives. The entries below indicate that a directive exists for the patient, but an actual copy is not included with this document. The data comes from all [place] facilities. Date Advance Directives Provider Source Sep 13, 2018 ADVANCE DIRECTIVE DISCUSSION BRADY NICK [facility] Encounter Notes: All associated encounter notes This section contains the clinical notes associated to the Encounter. Date/Time Encounter Note(s) Provider Source Nov 22, 2022 02:28 PM EDUCATION NOTE: LOCAL TITLE: EDUCATION MEDICATION INSTRUCTION STANDARD TITLE: EDUCATION NOTE DATE OF NOTE: NOV 22, 2022@14:28 ENTRY DATE: NOV 22, 2022@14:28:31 AUTHOR: KAITLYN WILLIS COSIGNER: URGENCY: STATUS: COMPLETED MEDICATION EDUCATION PARTICIPANTS: Patient TEACHING STRATEGY: Phone READINESS TO LEARN: No barriers identified LEARNING NEEDS/OBJECTIVES Participant(s) indicates readiness to learn and has been instructed on indications, side effects, and directions for use. Participant(s) will receive medication information sheets for medications filled. Education included discussion of the following: New medication(s): Paxlovid Date of symptol onset, reported by provider: 11/20/22. EUA submitted. patient was advised to report any ADR. Pt counseled to watch for blood pressure since usinf Diltiazem and Losartan PATIENT/FAMILY RESPONSE (OUTCOME): Verbalizes critical information about the topic FOLLOW-UP RECOMMENDED: None needed Active Outpatient Medications (including Supplies): Outpatient Medications Status ==== 1) INV-PAXLOVID [id number] DAILY PKT TAKE ACCORDING ACTIVE TO DIRECTIONS IN PACKAGE BY MOUTH TWICE A DAY COVID-19 /ti/ NIMA MOY Pharmacist Signed: 11/22/2022 14:33 NIMA WILLIS [facility]
--- OUTSIDE RECORDS SUMMARY | 2023-06-19 13:06 | XMS_ITS | Encounter Summary ---
Author Name [facility] of Vetera [facility] Organization [facility] of [facility]a Affairs Address [address] [place] [address] Support Name Relationship Address Phone SHERITAFAVIOLA Next of [place] [address] [place] [address] FAVIOLA MAGALLON Emergency Contact [address] [place], [place] [phone] JOSE ELIAS LANDON Next of Kin [address] [facility] [place], [place] ISSAC LANDON Emergency Contact [address] [facility] [place], [place] Selected Encounter This section includes the information on record at [place] for the Encounter. Date/Time Encounter Type Encounter Description Reason Provider Source Apr 24, 2023 10:00 AM Outpatient Encounter ADMIN PAT ACTIVTIES (MASNONCT) GEMINI PRESCOTT Blake Encounter Template Text not used by [place] Plan of Treatment: Future Appointments (+ 6 months) and Future Tests (+/- 45 days) The Plan of Treatment section includes future care activities for the patient from all [place] treatmentfacilities. This section includes future appointments and future orders which are active, pending or scheduled. Future Appointments This section includes appointments that were scheduled to occur 6 months from the date of the Encounter, up to a maximum of 20 appointments. The data comes from all [place] treatment facilities. Appointment Date/Time Appointment Type Appointme nt Facility Name May 12, 2023 02:00 PM [facility]ORY - [facility]ICINE [facility] Advance Directives: All historical and current Section Date Range: From patient's date of to the date document was created. This section includes ALL of a patient's completed or amended VA Advance and Rescinded Directives. The entries below indicate that a directive exists for the patient, but an actual copy is not included with this document. The data comes from all [place] facilities. Date Advance Directives Provider Source Sep 13, 2018 ADVANCE DIRECTIVE DISCUSSION BRADY NICK [place] [facility] Encounter Notes: All associated encounter notes This section contains the clinical notes associated to the Encounter. Date/Time Encounter Note(s) Provider Source Apr 26, 2023 02:40 PM ADDENDUM: LOCAL TITLE: Addendum STANDARD TITLE: ADDENDUM DATE OF NOTE: APR 26, 2023@14:40:25 ENTRY DATE: APR 26, 2023@14:40:27 AUTHOR: GEMINI PRESCOTT EXP COSIGNER: URGENCY: STATUS: COMPLETED Community Care Transitions Team Care Coordination Note Admit date: 04/22/23 Discharge date: 04/23/23 Level of Care: observation Primary Diagnosis: 1. Hypertensive urgency. 2. Chest pain. 3. Headache. Discharge Disposition: Home Discharge provider recommends and notes the following: PCP Please review the Discharge Summary for complete details of the care rendered, as well as any necessary or recommended follow up care the patient may require. Hospital records uploaded to [employer] via [employer]. No PACT. Requested eligibility to mail a packet of information to regarding VA benefits. /ti/ GEMINI PRESCOTT RN BSEllyn ALONZO EMPLOYEE COMMUNICATIONS COORDINATOR [employer] Signed: 04/26/2023 14:50 Receipt Acknowledged By: 04/27/2023 08:06 /ti/ DANISH Pacheco Hadoop Java Developer Community Sign Manufacturer --- Original Document --- 04/22/23 [facility] PRESENTING CARE COORD PLAN NOTE: Emergency Notification Intake Date Presenting to the Facility: Apr Method of Contact: Notified from [employer] worklist Notification ID: [id number] [facility] Referral #: Community Hospital Name: Hospital: [facility] Address: City: [facility] State: [place] Zip Code: Phone : [facility] [place] of Contact: Name: Phone: Chief complaint: I160 - Hypertensive urgency Primary Diagnosis: Disposition Unknown at time of intake note entry /ti/ VIJAY JONES SHAPING MACHINE OPERATOR Signed: 04/24/2023 10:02 Receipt Acknowledged By: 04/25/2023 11:48 /ti/ GEMINI PRESCOTT HOME CARE GIVER [facility] EMPLOYEE COMMUNICATIONS COORDINATOR [employer] 04/25/2023 ADDENDUM STATUS: COMPLETED .rn /ti/ GEMINI PRESCOTT HOME CARE GIVER [facility] EMPLOYEE COMMUNICATIONS COORDINATOR [employer] Signed: 04/25/2023 11:48 04/22/2023 ADDENDUM STATUS: COMPLETED [facility] Scanned Document - Addendum. ED, H&P and discharge summary 04/22/23 - 04/23/23 [facility] SCANNED DOCUMENT SIGNATURE NOT REQUIRED Electronically Filed: 04/26/2023 by: ELLA GunnAdvanced Commercial Driver 04/26/2023 ADDENDUM STATUS: COMPLETED Records including DC summary uploaded via [email or web address] for review. /ti/ ELLA GunnAdvanced Commercial Driver Signed: 04/26/2023 13:40 GEMINI PRESCOTT [facility] Apr 22, 2023 10:00 AM NONVA NOTE: LOCAL TITLE: [facility] SELF PRESENTING CARE COORD PLAN STANDARD TITLE: NONVA NOTE DATE OF NOTE: APR 22, 2023@10:00 ENTRY DATE: APR 24, 2023@10:00:44 AUTHOR: VIJAY JONES EXP COSIGNER: URGENCY: STATUS: COMPLETED [facility] SELF PRESENTING CARE COORD PLAN NOTE Has ADDENDA Emergency Notification Intake Date Presenting to the Facility: Apr Method of Contact: Notified from [facility] worklist Notification ID: [id number] [facility] Referral #: [facility] Hospital Name: Hospital: [facility] Address: City: [facility] State: [place] Zip Code: Phone : [facility] [place] of Contact: Name: Phone: Chief complaint: I160 - Hypertensive urgency Primary Diagnosis: Disposition Unknown at time of intake note entry /ti/ VIJAY JONES SHAPING MACHINE OPERATOR Signed: 04/24/2023 10:02 Receipt Acknowledged By: 04/25/2023 11:48 /ti/ [facility]I [facility] EMPLOYEE COMMUNICATIONS COORDINATOR [employer] 04/25/2023 ADDENDUM STATUS: COMPLETED .rn /ti/ [facility]INI [facility] EMPLOYEE COMMUNICATIONS COORDINATOR [employer] Signed: 04/25/2023 11:48 04/22/2023 ADDENDUM STATUS: COMPLETED [facility] Scanned Document - Addendum. ED, H&P and discharge summary 04/22/23 - 04/23/23 [facility] SCANNED DOCUMENT SIGNATURE NOT REQUIRED Electronically Filed: 04/26/2023 by: ELLA MCCRAY .PriyaAdvanced Commercial Driver 04/26/2023 ADDENDUM STATUS: COMPLETED Records including DC summary uploaded via [email or web address] for review. /ti/ ELLA MCCRAY .PriyaAdvanced Commercial Driver Signed: 04/26/2023 13:40 04/26/2023 ADDENDUM STATUS: COMPLETED Community Care Transitions Team Care Coordination Note Admit date: 04/22/23 Discharge date: 04/23/23 Level of Care: observation Primary Diagnosis: 1. Hypertensive urgency. 2. Chest pain. 3. Headache. Discharge Disposition: Home Discharge provider recommends and notes the following: PCP Please review the Discharge Summary for complete details of the care rendered, as well as any necessary or recommended follow up care the patient may require. Hospital records uploaded to [facility] [facility] via [employer]. No PACT. Requested eligibility to mail a packet of information to regarding VA benefits. /clifton [facility] EMPLOYEE COMMUNICATIONS COORDINATOR [employer] Signed: 04/26/2023 14:50 Receipt Acknowledged By: 04/27/2023 08:06 /ti/ DANISH Pacheco Hadoop Java Developer Community Sign Manufacturer 04/27/2023 ADDENDUM STATUS: COMPLETED Outreach call to Paddy to follow up post community hospital encounter and offer and discuss option to enroll in PACT. Message left requesting a call back. /DANISH Mireles Hadoop Java Developer Community Sign Manufacturer Signed: 04/27/2023 16:40 05/03/2023 ADDENDUM STATUS: COMPLETED Spoke with Paddy, who is interested in [place]CT. Preference for [place] location. Paddy is working through process to increase service connection. Plans to attend law school later this year. Emailed information/resources ( ) *contact information for [facility] and [phone] number to request PACT *https://www.va.gov/health [place]care/copay-rates/ *https://www.[place].gov[place]/barlnzl-wrstoflbc-qfco -fs-xrw-jy-facilities/ *ECR reporting # /es/ Libra Cárdenas [facility] Hadoop Java Developer Community Sign Manufacturer Signed: 05/03/2023 10:[address] [facility]
--- OUTSIDE RECORDS SUMMARY | 2023-06-19 13:06 | XMS_ITS | Encounter Summary ---
Author Name [facility] Organization [facility] Address [address] [place] [address] Support Name Relationship Address Phone SHERITA FAVIOLA Next of Kin [address] [place] [address] FAVIOLA MAGALLON Emergency Contact [address] [place], [place] [phone] JOSE ELIAS LANDON Next of Kin [address] [facility] [place], [place] ISSAC LANDON Emergency Contact [address] [facility] [place], [place] Selected Encounter This section includes the information on record at PA for the Encounter. Date/Time Encounter Type Encounter Description Reason Provider Source Nov 22, 2022 01:36 PM EMERGENCY DEPT VISIT [facility] EMERGENCY DEPT ICD-10-CM U07.1 COVID-19 COLT DOUGHERTY Blake Encounter Template Text not used by PA Assessments - Encounter Diagnoses This section includes the primary and secondary diagnoses documented for the Encounter. Date/Time Primary/Secondary Diagnosis Diagnosis Name Provider Source Nov 22, 2022 02:52 PM PRIMARY COVID-19 [facility] Nov 22, 2022 02:52 PM SECONDARY Elevated blood-pressure reading, w/o diagnosis of htn COLT DOUGHERTY [facility] Plan of Treatment: Future Appointments (+ 6 months) and Future Tests (+/- 45 days) The Plan of Treatment section includes future care activities for the patient from all [place] treatmentfacilities. This section includes future appointments and future orders which are active, pending or scheduled. Future Appointments This section includes appointments that were scheduled to occur 6 months from the date of the Encounter, up to a maximum of 20 appointments. The data comes from all [place] treatment facilities. Appointment Date/Time Appointment Type Appointme nt Facility Name Apr 20, 2023 03:07 PM AMBULATORY - MEDICINE [facility] Apr 24, 2023 10[facility]00 AM [facility] NONE [facility] May 12, 2023 02:00 PM AMBULATORY - MEDICINE [facility] Vital Signs: All taken on the encounter date This section contains inpatient and outpatient Vital Signs collected on the date of the Encounter. Date/Time Temperature Pulse Blood Pressure Respiratory Rate SP02 Pain Height Weight Body Mass Index Source Nov 22, 2022 01:55 PM 97.4 F 110 /min 196/124 mm[Hg] 16 /min 0 [facility] Advance Directives: All historical and current Section Date Range: From patient's date of to the date document was created. This section includes ALL of a patient's completed or amended [place] Advance and Rescinded Directives. The entries below indicate that a directive exists for the patient, but an actual copy is not included with this document. The data comes from all [place] facilities. Date Advance Directives Provider Source Sep 13, 2018 ADVANCE DIRECTIVE DISCUSSION BRADY NICK [facility] Encounter Notes: All associated encounter notes This section contains the clinical notes associated to the Encounter. Date/Time Encounter Note(s) Provider Source Nov 22, 2022 02:33 PM NURSING EMERGENCY DEPT NOTE: LOCAL TITLE: EMERGENCY DEPT NURSING NOTE STANDARD TITLE: NURSING EMERGENCY DEPT NOTE DATE OF NOTE: NOV 22, 2022@14:33 ENTRY DATE: NOV 22, 2022@14:33:49 AUTHOR: NATALI WRAY COSIGNER: URGENCY: STATUS: COMPLETED Emergency Department Discharge Education Personal Protective Equipment (PPE): Patient was in mask on arrival, patient remained masked for entire visit, RN used PPE during every encounter with the patient, MD/PA/CORE PASTER used PPE during every encounter with the patient The patient was given education on the following: CORONAVIRUS (COVID-19) EDUCATION/TEACH BACK: [facility] discharge instructions have been reviewed with Patient AND had an opportunity to ask questions, has verbalized understanding, have received a copy of the [facility] instructions, Performs skills effectively EDUCATIONAL LEVEL OF UNDERSTANDING: Patient was ready and receptive to education. 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 SAMANTHA and should be able to return to work or school until asymptomatic or days.. SAMANTHA needs the following work limitations: rest, quarantine for 10 days or until asymptomatic. Electronically sign by: Gigi /ti/ TERRANCE VALDEZ PHYSICIAN HAULAGE BOSS Signed: 11/22/2022 14:21 COLT DOUGHERTY [facility] Nov 22, 2022 02:20 PM PHYSICIAN EMERGENC Y DEPT NOTE: LOCAL TITLE: EMERGENCY DEPT NOTE STANDARD TITLE: PHYSICIAN EMERGENCY DEPT NOTE DATE OF NOTE: NOV 22, 2022@14:20 ENTRY DATE: NOV 22, 2022@14:20:37 AUTHOR: COLT DOUGHERTY EXP COSIGNER: URGENCY: STATUS: COMPLETED Personal Protective Equipment (PPE): Nurse's note reviewed. Chief Complaint: The patient is a 42 y/o FEMALE complaining of: COVID positive at home. TDAP/TD Immunizations No data available for: TETANUS TOXOID, ADSORBED TETANUS TOXOID, NOT ADSORBED TETANUS TOXOID, UNSPECIFIED FORMULATION TDAP Covid-19 Immunizations Immunization Series Date Facility Reaction Info COVID-19 (MODERNA), MRNA, LNP-S,* 07/14/2020 [facility] COVID-19 (MODERNA), MRNA, LNP-S,* 08/11/2020 [facility] COVID-19 (MODERNA), MRNA, LNP-S,* 03/11/2021 [facility] History of present illness: 42-year-old with past medical history of hypertension on diltiazem and losartan started sore throat coughing aches and pains on Monday tested COVID at home and was positive. Needed work note as well as COVID medication. Denies any chest pain, palpitation shortness of breath. Allergies: Patient has answered NKA Review of Systems: 10 point ROS reviewed and otherwise negative unless stated in HPI. Past Medical History: Problem List - Active - NONE FOUND Medications: Active Outpatient Medications (excluding Supplies): Outpatient Medications Status 1) INV-PAXLOVID [id number] DAILY PKT TAKE ACCORDING PENDING TO DIRECTIONS IN PACKAGE BY MOUTH TWICE A DAY Physical Exam: BP: 196/124 (11/22/2022 13:55) P: 110 (11/22/2022 13:55) R: 16 (11/22/2022 13:55) T: 97.4 F [36.3 C] (11/22/2022 13:55) O2 Sats: 99% (09/03/2021 11:50) General: well developed, well nourished, NAD, obese Neck: no JVD Eye: Anicteric ENT: oropharynx clear Cardiovascular: RRR, S1/S2 Respiratory: Lungs - clear to auscultation bilaterally ED Course/Medical Decision Making/Assessment: CPRS Notes/Labs Reviewed for Patient Encounter: Emergency department triage, emergency department nursing note, Diagnosis and Plan: 42-year-old with past medical history of hypertension on diltiazem and losartan started sore throat coughing aches and pains on Monday tested COVID at home and was positive. Needed work note as well as COVID medication. Denies any chest pain, palpitation shortness of breath. 1.Covid: Advised to rest stay home, rest and quarantine until asymptomatic. Symptomatic treatment 2. Elevated blood pressure: Advised to monitor blood pressure and follow-up with PCP for further evaluation and Disposition: /ti/ TERRANCE VALDEZ PHYSICIAN HAULAGE BOSS Signed: 11/22/2022 14:29 COLT DOUGHERTY [facility] Nov 22, 2022 02:17 PM EMERGENCY DEPT EDU CATION NOTE: LOCAL TITLE: EMERGENCY DEPT DISCHARGE INSTRUCTIONS STANDARD TITLE: EMERGENCY DEPT EDUCATION NOTE DATE OF NOTE: NOV 22, 2022@14:17:01 ENTRY DATE: NOV 22, 2022@14:17:01 AUTHOR: COLT DOUGHERTY EXP COSIGNER: URGENCY: STATUS: COMPLETED DISCHARGE INSTRUCTIONS [...] instructions below. You were treated today by TERRANCE Valdez. Special Information This Information Is About Your Follow Up Care It is important that you establish a relationship with a Primary Care Physician. A Primary Care Physician can provide recommendations that will help you protect your health. They can get to know you, your history as well as your family history. A Primary Care Physician can also provide the screenings you need, and identify and treat many minor problems before they become major ones. Please contact [phone] to establish a primary care provider Future Appointments [none] This Information Is About Your Illness and Diagnosis CORONAVIRUS (COVID-19) If you are discharged before you know the result of your COVID-19 test (usually results are available within 4 hours), you can find your results by: 1. Calling the Clinical Call Center and asking for your result at [phone] 2. Checking [facility] under lab results 3. The [place] automatic calling system will call you if your result is negative the following day. Monitor your symptoms Seek prompt medical attention if your illness is worsening (e.g., difficulty breathing). Before seeking care, call your healthcare provider and tell them that you have, or are being evaluated for, COVID-19. Put on a facemask before you enter the facility. These steps will help the healthcare provider's office to keep other people in the office or waiting room from getting infected or exposed. Persons who are placed under active monitoring or facilitated self-monitoring should follow instructions provided by their local health department or occupational health professionals, as appropriate. If you have a medical emergency and need to call 911, notify the dispatch personnel that you have, or are being evaluated for COVID-19. If possible, put on a facemask before emergency medical services arrive. Prevention steps for -People with confirmed or suspected COVID-19 (including persons under investigation) who do not need to be hospitalized -and People with confirmed COVID-19 who were hospitalized and determined to be medically stable to go home Per [place] policy and state-mandated reporting guidelines, your test results will be shared with the [place] Department of [facility] Your healthcare provider and public health staff will evaluate whether you can be cared for at home. If it is determined that you do not need to be hospitalized and can be isolated at home, you will be monitored by staff from your local or state health department. You should follow the prevention steps below until a healthcare provider or local or state health department says you can return to your normal activities. Stay home except to get medical care People who are mildly ill with COVID-19 are able to isolate at home during their illness. You should restrict activities outside your home, except for getting medical care. Do not go to work, school, or public areas. Avoid using public transportation, ride-sharing, or taxis. Separate yourself from other people and animals in your home -People: As much as possible, you should stay in a specific room and away from other people in your home. Also, you should use a separate bathroom, if available. -Animals: Do not handle pets or other animals while sick. See COVID-19 and Animals for more information. Call ahead before visiting your doctor If you have a medical appointment, call the healthcare provider and tell them that you have or may have COVID-19. This will help the healthcare provider's office take steps to keep other people from getting infected or exposed. Wear a facemask You should wear a facemask when you are around other people (e.g., sharing a room or vehicle) or pets and before you enter a healthcare provider's office. If you are not able to wear a facemask (for example, because it causes trouble breathing), then people who live with you should not stay in the same room with you, or they should wear a facemask if they enter your room. Cover your coughs and sneezes Cover your mouth and nose with a tissue when you cough or sneeze. Throw used tissues in a lined trash can; immediately wash your hands with soap and water for at least 20 seconds or clean your hands with an alcohol-based hand manager behavioral that contains at least 60 to 95% alcohol, covering all surfaces of your hands and rubbing them together until they feel dry. Soap and water should be used preferentially if hands are visibly dirty. Avoid sharing personal household items You should not share dishes, drinking glasses, cups, eating utensils, towels, or bedding with other people or pets in your home. After using these items, they should be washed thoroughly with soap and water. Clean your hands often Wash your hands often with soap and water for at least 20 seconds. If soap and water are not available, clean your hands with an alcohol-based hand manager behavioral that contains at least 60% alcohol, covering all surfaces of your hands and rubbing them together until they feel dry. Soap and water should be used preferentially if hands are visibly dirty. Avoid touching your eyes, nose, and mouth with unwashed hands. Clean all high-touch surfaces every day High touch surfaces include counters, tabletops, doorknobs, bathroom fixtures, toilets, phones, keyboards, tablets, and bedside tables. Also, clean any surfaces that may have blood, stool, or body fluids on them. Use a household cleaning spray or wipe, according to the label instructions. Labels contain instructions for safe and effective use of the cleaning product including precautions you should take when applying the product, such as wearing gloves and making sure you have good ventilation during use of the product. . Discontinuing home isolation Patients with confirmed COVID-19 should remain under home isolation precautions until the risk of secondary transmission to others is thought to be low. The decision to discontinue home isolation precautions should be made on a [id number] basis, in consultation with healthcare providers and state and local health departments. Recommended precautions for household members, intimate partners, and caregivers in a nonhealthcare setting of; -A patient with symptomatic laboratory-confirmed COVID-19 -or A patient under investigation Household members, intimate partners, and caregivers in a nonhealthcare setting may have close contact2 with a person with symptomatic, laboratory-confirmed COVID-19 or a person under investigation. Close contacts should monitor their health; they should call their healthcare provider right away if they develop symptoms suggestive of COVID-19 (e.g., fever, cough, shortness of breath) (see Interim [place] Guidance for Risk Assessment and Public Health Management of Persons with Potential Coronavirus Disease 2019 (COVID-19) Exposure in Travel-associated or Community Settings.) Close contacts should also follow these recommendations: -Make sure that you understand and can help the patient follow their healthcare provider's instructions for medication(s) and care. You should help the patient with basic needs in the home and provide support for getting groceries, prescriptions, and other personal needs. -Monitor the patient's symptoms. If the patient is getting sicker, call his or her healthcare provider and tell them that the patient has laboratory-confirmed COVID-19. This will help the healthcare provider's office take steps to keep other people in the office or waiting room from getting infected. Ask the healthcare provider to call the local or [facility] health department for additional guidance. If the patient has a medical emergency and you need to call 911, notify the dispatch personnel that the patient has, or is being evaluated for COVID-19. -Household members should stay in another room or be from the patient as much as possible. Household members should use a separate bedroom and bathroom, if available. -Prohibit visitors who do not have an essential need to be in the home. -Household members should care for any pets in the home. Do not handle pets or other animals while sick. For more information, see COVID-19 and Animals. -Make sure that shared spaces in the home have good air flow, such as by an air conditioner or an opened window, weather permitting. -Perform hand hygiene frequently. Wash your hands often with soap and water for at least 20 seconds or use an alcohol-based hand manager behavioral that contains 60 to 95% alcohol, covering all surfaces of your hands and rubbing them together until they feel dry. Soap and water should be used preferentially if hands are visibly dirty. -Avoid touching your eyes, nose, and mouth with unwashed hands. -The patient should wear a facemask when you are around other people. If the patient is not able to wear a facemask (for example, because it causes trouble breathing), you, as the caregiver, should wear a mask when you are in the same room as the patient. -Wear a disposable facemask and gloves when you touch or have contact with the patient's blood, stool, or body fluids, such as saliva, sputum, nasal mucus, vomit, urine. -Throw out disposable facemasks and gloves after using them. Do not reuse. -When removing personal protective equipment, first remove and dispose of gloves. Then, immediately clean your hands with soap and water or alcohol-based hand manager behavioral. Next, remove and dispose of facemask, and immediately clean your hands again with soap and water or alcohol-based hand manager behavioral. -Avoid sharing household items with the patient. You should not share dishes, drinking glasses, cups, eating utensils, towels, bedding, or other items. After the patient uses these items, you should wash them thoroughly (see below Wash laundry thoroughly). -Clean all high-touch surfaces, such as counters, tabletops, doorknobs, bathroom fixtures, toilets, phones, keyboards, tablets, and bedside tables, every day. Also, clean any surfaces that may have blood, stool, or body fluids on them. -Use a household cleaning spray or wipe, according to the label instructions. Labels contain instructions for safe and effective use of the cleaning product including precautions you should take when applying the product, such as wearing gloves and making sure you have good ventilation during use of the product. -Wash laundry thoroughly. -Immediately remove and wash clothes or bedding that have blood, stool, or body fluids on them. -Wear disposable gloves while handling soiled items and keep soiled items away from your body. Clean your hands (with soap and water or an alcohol-based hand manager behavioral) immediately after removing your gloves. -Read and follow directions on labels of laundry or clothing items and detergent. In general, using a normal laundry detergent according to washing machine instructions and dry thoroughly using the warmest temperatures recommended on the clothing label. -Place all used disposable gloves, facemasks, and other contaminated items in a lined container before disposing of them with other household waste. Clean your hands (with soap and water or an alcohol-based hand manager behavioral) immediately after handling these items. Soap and water should be used preferentially if hands are visibly dirty. -Discuss any additional questions with your state or local health department or healthcare provider. https://www.cdc.gov/coronav irus/2019-ncov/your-health/ index.html IMPORTANT MEDICATION INFORMATION -Your medication list includes any medications that were recently prescribed but not filled by the Pharmacy (PENDING Medicines). -Included are any known ACTIVE Medicines. Please review this list to make sure it is accurate, if this list does not match the current medications you are taking please follow-up with your Primary Care Team to have your Medication List reviewed. Pending Medications INV-PAXLOVID [id number] DAILY PKT \ Sig: TAKE ACCORDING TO DIRECTIONS IN PACKAGE BY MOUTH TWICE A DAY\Indication: COVID-19 Active Medications [none] Medications Medications in the last 90 days [none] Discontinued Medications Medications discontinued in the last 90 days [none] YOU ARE THE MOST IMPORTANT FACTOR IN [...] OR GO TO THE NEAREST EMERGENCY ROOM /ti/ TERRANCE VALDEZ PHYSICIAN HAULAGE BOSS Signed: 11/22/2022 14:17 COLT DOUGHERTY [facility] Nov 22, 2022 02:14 PM NURSING EMERGENCY DEPT NOTE: LOCAL TITLE: EMERGENCY DEPT NURSING NOTE STANDARD TITLE: NURSING EMERGENCY DEPT NOTE DATE OF NOTE: NOV 22, 2022@14:14 ENTRY DATE: NOV 22, 2022@14:14:45 AUTHOR: NATALI WRAY EXP COSIGNER: URGENCY: STATUS: COMPLETED Nursing Focused Assessment: CHIEF COMPLAINT: Patient presents being COVID + by home test yesterday. States she is interested in antivirals and needs a note for work. 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 (</= 52 years): Date of last menstrual period xx Comment: Length of period: REVIEW OF SYSTEM-FOCUSED ASSESSMENT Neurological: Alert Mentation Oriented to: Person, Place, Time, Location INTERVENTIONS: Oriented to room and bed controls Call light within reach of patient or family/friend Bed in low position and locked /es/ NATALI WRAY, MSN, RN REGISTERED NURSE Signed: 11/22/2022 14:16 NATALI WRAY [facility] Nov 22, 2022 01:52 PM NURSING EMERGENCY DEPT TRIAGE NOTE: LOCAL TITLE: EMERGENCY DEPARTMENT NURSING TRIAGE NOTE STANDARD TITLE: NURSING EMERGENCY DEPT TRIAGE NOTE DATE OF NOTE: NOV 22, 2022@13:52 ENTRY DATE: NOV 22, 2022@13:52:41 AUTHOR: AGNIESZKA MANTILLA COSIGNER: URGENCY: STATUS: COMPLETED Emergency Department/Urgent Care Center Triage Patient age:42 Sex: FEMALE On arrival patient was: AMBULATORY Patient phone number: Allergies: Patient has answered NKA Subjective/Chief Complaint: Covid + Objective: Pt. presents to ED wanting a note for work due to having covid and would like to get the antiviral for same. Pt. states that she took a home test and was positive yesterday. The patient is not a fall risk. Vital Signs * Temperature 97.4 F (36.3 C) Pulse 110 Respirations 16 Blood Pressure 196/124 Pain scale recorded: 0 Pulse Oximetry 98 Room Air Emergency Severity Index (VALENCIA) level Level 4 Current Medications: Active Outpatient Medications (including Supplies): No Medications Found Current Problems: No Active Problems on record Identification of Seniors at Risk (ISAR):* Defer screen <75 Suicide Screen: [place] Suicide Severity Rating Scale (C-SSRS) screener 1. [...] due to responses to other questions. /ti/ AGNIESZKA MANTILLA RN REGISTERED NURSE Signed: 11/22/2022 14:02 AGNIESZKA MANTILLA [facility]
--- OUTSIDE RECORDS SUMMARY | 2023-06-19 13:06 | XMS_ITS | Clinical Summary ---
Author Name Unknown Organization [employer] [facility] Address [place], [place] [address] Care Team Providers Care Religion Department Chair Name Role Phone Lali Soto MD Primary Care Provider Allergies Active Allergy Reactions Criticality Noted Date Comments Daniele Inhibitors Cough 11/14/2013 Amoxicillin Rash 07/08/2013 Lisinopril Cough 11/14/2013 Medications Medication Sig Dispensed Refills Start Date End Date Status dilTIAZem CD (CARDIZEM CD) 240 mg extended release 24 hr capsuleIndications:H TN (hypertension) Take 1 Capsule (240 mg) by mouth once daily. 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 120 Tablet 11 09/16/2022 Active omeprazole 20 mg tabletIndications:Ch ronic GERD Take 1 Tablet (20 mg) by mouth once daily before a meal. 90 Tablet 09/16/2022 Active SUMAtriptan (IMITREX) 25 mg tabletIndications:Mi graine without status migrainosus, not intractable, unspecified migraine type Take 1 Tablet (25 mg) by mouth every 2 hours if needed for Migraine. Give at minimum 2hrs apart. Max Dose: 200mg per 24hrs. 10 Tablet 6 09/16/2022 Active budesonide 6 mg cpERIndications:Lymp hocytic colitis Take 6 mg by mouth once daily. to start after completion of 9 mg dose 90 Capsule 3 11/04/2022 Active azithromycin (ZITHROMAX) 250 mg tabletIndications:In fection of the larynx, trachea, bronchi or lungs Take 500 mg (2 tabs) by mouth on day 1, then 250 mg (1 tab) daily for days 2-5. 6 Tablet 05/01/2023 Active Active Problems Problem Noted Date Diagnosed Date Lymphocytic colitis 04/13/2021 Anxiety 04/13/2021 Chronic GERD 04/13/2021 HTN (hypertension) Migraine headache Prediabetes Hypertriglyceridemia Elevated hemoglobin Tobacco use disorder ELISA I (cervical intraepithelial neoplasia I) Overview: 07/23/2010 Downing ELISA I Noted in Care everywhere - telephone encounter dated 06/27/2013 Normal Pap (third normal after previous ELISA 1). 07/14/2020 NIL/HPV negative Plan: Routine screening Mitral valve regurgitation Overview: dx'ed teenager; wipaty MVP; saw cardiololgy in the [place]; per 2007 guidelines she does NOT need SBE prophylaxis Resolved Problems Problem Noted Date Diagnosed Date Resolved Date Irritable bowel syndrome wit h both constipation and diarrhea 09/03/2020 04/13/2021 Mitral valve regurgitation 0 08/18/2020 Overview: dx'ed teenager; wipaty MVP; saw cardiololgy in the [place] Encounters Date Type Department Care Team Description 05/15/2023 Patient Outreach [facility] [employer] Care Management - Advanced Care Team [address] [place] [address] Sakshi Goss, dehydration plant operator Management (CCM Engagement Outreach - Payer referral) 05/09/2023 Patient Outreach [facility] Care Management - Care Management Navigation/[facility] [address] [place] [address] Carrie Srivastava Care Management Intake (Identification Date/) 05/01/2023 11:10 AM CARDIAC CATHETERIZATION TECHNICIAN Telemedicine [facility] [address] [place] [address] Deanna Marshall PA Telehealth (URI/No vitals taken//) 05/01/2023 Travel 04/20/2023 2:00 PM CARDIAC CATHETERIZATION TECHNICIAN Office Visit [facility] [address] [phone] Anel Michaudamud, EDUCATION DEPARTMENT CHAIR Headache 04/20/2023 Travel 03/20/2023 Refill [facility] [address] [phone] Lali Soto MD Refill Request (Olmesartan) from Last 3 Months Immunizations Name Administration Dates Next Due Anthrax Vaccine 08/25/2009, 9,07/14/2007,03/12,02/25/2007 COVID-19 vaccine (Moderna 100mcg/0.5mL) PF, MDV 08/11/2020,07/14/2020 HepA-HepB (Twinrix) 02/25/2007,10/02/2006,2006 Inactivated Polio Vaccine 10/02/2006 Influenza A (H1N1), Inactiva mirtha (Age >=3 Years) 03/19/2009 Influenza Virus, Unspecified 12/28/2012, 11/20/2009,12/10/2008,01/16 Influenza, IIV4 03/11/2021 Influenza, Live, Intranasal Laiv3 2011,11/09/2010,02/25/2007,08/29 Influenza, split (incl. lucille fied surface antigen) 11/20/2009,12/10/2008,01/17/2008 Influenza,LAIV4 Live Intrana casimiro (Flumist) 01/05/2012,11/09/2010,02/25/2007,08/29 MMR 08/29/2006 Meningococcal Vaccine (Menomune) 02/05/2008 Pneumococcal Conj 20-valent (Prevnar 20) 09/22/2021 Pneumococcal Poly,23-Valent (Pneumovax) 10/21/2015,07/28/2011 Pneumococcal, Unspecified 10/21/2015 Tdap 10/21/2015, 4,08/29/2006,03/06 Tuberculin (PPD) 06/15/2010,03/17/2009 Typhoid (injectable) 09/03/2009,07/14/2007 Yellow Fever 09/26/2007 Family History Medical History Relation Name Comments Brain cancer Father Malignant Hypertension Father Stroke Father felt to be caus ed or contributed to by radiation for brain tumor Suicidality Father committed suici de, oxycontin dependence Depression Mother rarely leaves t he house Stroke Paternal Grandfather fr om this Relation Name Status Comments Father Mother Paternal Grandfather Social History Tobacco Use Types Packs/Day Years Used Date Smoking Tobacco: Former Cigarettes 0.5 26.3 S tarted: 1997 Smokeless Tobacco: Never Tobacco Cessation:Counseling Given: Not Answered Alcohol Use Standard Drinks/Week Comments Yes 6 (1 standard drink = 0.6 oz pur e alcohol) PHQ-2 Answer Date Recorded PHQ-2 TOTAL SCORE 0 09/16/2022 Social Connections Answer Date Recorded Frequency of Communication with Friends and Fami ly 0 09/16/2022 Financial Resource Strain Answer Date R ecorded Difficulty of Paying Living Expenses 3 09/16/2022 Difficulty of Paying Living Expenses Not on file 09/16/2022 Food Insecurity Answer Date Recorded Worried About Running Out of Food in the Last Ye ar 1 09/16/2022 Transportation Needs Answer Date Record ed Lack of Transportation (Medical) 1 09/16/2022 Housing Stability Answer Date Recorded Unable to Pay for Housing in the Last Year 1 09/16/2022 Sex and Gender Information Value Date Recorded Sex Assigned at Not on file Gender Identity Not on file Sexual Orientation Not on file Obstetrics History Last Filed Vital Signs Vital Sign Reading Time Taken Comments Blood Pressure 214/114 04/20/2023 2:28 PM CARDIAC CATHETERIZATION TECHNICIAN Pulse 108 04/20/2023 2:19 PM CARDIAC CATHETERIZATION TECHNICIAN Temperature 36.9 ??C (98.5 ??F) 01/22/2022 9:52 AM CS T Respiratory Rate 16 04/20/2023 2:19 PM CARDIAC CATHETERIZATION TECHNICIAN Oxygen Saturation 96% 04/20/2023 2:19 PM CARDIAC CATHETERIZATION TECHNICIAN Inhaled Oxygen Concentration - - Weight 104.5 kg (230 lb 4.8 oz) 023 10:01 AM CDT Height 176.5 cm (5' 9.49) 09/16/2022 1 0:01 AM CDT Body Mass Index 33.53 09/16/2022 10:01 AM CDT Plan of Treatment Upcoming Encounters Date Type Department Care Team (Late st Contact Info) Description 07/28/2023 1:10 PM CDT Office Visit [facility] [address] [phone] Lali Soto MD [address] [place] [phone] Health Maintenance Due Date Last Done Comments COVID-19 vaccine series (2022-24 season) 2022 03/11/2021, 08/11/2020, 07/14/2020 BMI (ht and wt on same day) for age 18+ 09/17/2023 09/16/2022, 09/22/2021, 03/19/2021, Additional history exists Depression screening for age 12+ 09/17/2023 09/16/2022, 09/22/2021, 04/13/2021, Additional history exists Influenza for age 9-49 11/05/2023 , 12/28/2012, 01/05/2012, Additional history exists Pap test for age 21-65 07/14/2025 07/14/2020, 2020 Tetanus booster 10/20/2025 10/21/2015, 03/2013, 08/29/2006, Additional history exists Tdap Completed 10/21/2015, 03/2013, 08/29/2006, Additional history exists Pneumococcal series for age 6-64 Aged Out 09/22/2021, 10/21/2015, 10/21/2015, Additional history exists No longer eligible based on patient's age to complete this topic HIV for age 15-65 Completed 09/16/2022 Hepatitis C screening for age 18-79 Completed 09/16/2022 Procedures Procedure Name Priority Date/Time Associated Diagnosis Comments LC HIV-1/O/2, 4TH GENERATION Routine 09/16/2022 11:05 AM CDT Screening for HIV (human immunodeficiency virus) LC HCV ANTIBODY RFX TO QUANT PCR Routine 09/16/2022 11:05 AM CDT Need for hepatitis C screening test AVIONICS TECHNICIAN THIN PREP PAP SCREEN IMAGED Routine 07/14/2020 12:07 PM CDT Screening for malignant neoplasm of cervix from Last 3 Months or Most Recently Relevant to Health Maintenance Results * LC HCV ANTIBODY RFX TO QUANT PCR (09/16/2022 11:05 AM CDT) Pathologist [facility] HCV Ab Non Reactive Non Reactive 09/20/2022 4:[address] [facility]OTERIC TESTING ([facility]) Blood BLOOD SPECIMEN / Unknown Venipuncture / Unknown 09/16/2022 11:05 AM CDT 09/16/2022 11:05 AM CDT [facility]OTERIC TESTING ([facility]) - 09/20/2022 4:08 PM CDT Performed at: ??[address] ??[id number] Aboriginal Education Teacher: Dickson Araya MD, Phone: ??[phone] Lali Soto MD LABORATORY [facility] ESOTERIC TESTING ([facility]) [address] [place] [address] * LC HIV-1/O/2, 4TH GENERATION (09/16/2022 11:05 AM CDT) [facility] HIV Scr 4th Gen Non Reactive Non Reactive 09/20/2022 10:[address] [facility] ESOTERIC TESTING ([facility]) Comment: HIV Negative HIV-1/HIV-2 antibodies and HIV-1 p24 antigen were NOT detected. There is no laboratory evidence of HIV infection. Blood BLOOD SPECIMEN / Unknown Venipuncture / Unknown 09/16/2022 11:05 AM CDT 09/16/2022 11:05 AM CDT [facility]OTERIC TESTING ([facility]) - 09/20/2022 10:06 PM CDT Performed at: ??[address] ??[id number] Aboriginal Education Teacher: Dickson Araya MD, Phone: ??[phone] Lali Soto MD LABORATORY [facility] TEST[facility] ([facility]) [address] [place] [address], * AVIONICS TECHNICIAN THIN PREP PAP SCREEN IMAGED (07/14/2020 12:07 PM CDT) Case Report Gynecologic Cytology Report ? Case: [id number] ? Authorizing Provider: ??Haylee Bender MD ?Collected: ? 07/14/2020 1207 ? Ordering Location: ? [email or web address] ? Received: ?07/14/2020 1239 ? Clinic ? First Screen: ?Alli Dickey ? Specimen: ?AVIONICS TECHNICIAN ThinPrep Vial Screening, Cervical ? 07/23/2020 12:02 PM CDT [facility] LABORATORY-C ENTRAL LABORATORY INTERPRETATION/ RESULT NEGATIVE FOR INTRAEPITHELIAL LESION OR MALIGNANCY (NIL) (none) 07/23/2020 12:02 PM CDT [facility] IMEN ADEQUACY Satisfactory for evaluation Endocervical component present Scant cellularity 07/23/2020 12:02 PM CDT [facility] HPV REQUEST HPV and PAP 07/23/2020 12:02 PM CDT [facility] Date of LMP 06/30/2020 07/23/2020 12:02 PM CDT [facility] Last Pap Date 5 years ago 07/23/2020 12:02 PM CDT [facility] Last Pap Result NIL 12:02 PM CDT [facility] Abnormal Pap or Downing Bx in last 5 years No 07/23/2020 12:02 PM CDT [facility] Menstrual Status Irregular Periods 07/23/2020 12:02 PM CDT [facility] Downing Bx Done Today No 07/23/2020 12:02 PM CDT [facility] Additional Information None given 07/23/2020 12:02 PM CDT [facility] Comment: Cytology is screened at [facility] - [address], [place] [address] and [facility] - [address] [place] [address] and [facility] - [address] [facility] [place] [address] Interpreted at [facility] - [address], [place] [address] Automated Review Successful 07/23/2020 12:02 PM CDT [facility] Comment:Specimen processed s uccessfully by automated university professor device, ThinPrep Imaging System, [employer] ANCILLARY TESTING AVIONICS TECHNICIAN HPV Ordered, Please see separate report 07/23/2020 12:02 PM CDT [facility] Note The pap test is a screening technique, not a diagnostic procedure. It is used primarily to screen for squamous cancers and precursor lesions. Published studies have shown that it is subject to both false negative and false positive results. The pap test should not be used as the sole means to diagnose or exclude pre-malignant and malignant lesions. 07/23/2020 12:[address] [facility] Other (Cervical) Non-Blood / Unknown 07/14/2020 12:07 PM CDT 07/14/2020 12:39 PM CDT Haylee Bender MD PATHOLOGY/CYTOLOGY [facility]-C[facility]AL LABORATORY [address] [place] [address], from Last 3 Months or Most Recently Relevant to Health Maintenance Care Teams Religion Department Chair Relationship Specialty Start Date End Date Lali Soto MD [address] [place] [address] PCP - General Internal Medicine 03/19/21
--- OUTSIDE RECORDS SUMMARY | 2023-06-19 13:07 | XMS_ITS | Encounter Summary ---
Author Name [employer] [facility] [employer] Organization [employer] Address [address] [place] [address] Support Name Relationship Address Phone SHERITA FAVIOLA Next of Kin [address] [place] [address] FAVIOLA MAGALLON Emergency Contact [address] [place] [address] JOSE ELIAS LANDON Next of Kin [address] [facility] [place], [place] ISSAC LANDON Emergency Contact [address] [place], [place] Selected Encounter This section includes the information on record at [place] for the Encounter. Date/Time Encounter Type Encounter Description Reason Pro vider Source May 03, 2023 10:05 AM Outpatient Encounter PRIMARY CARE/MEDICINE E Encounter Template Text not used by [place] Plan of Treatment: Future Appointments (+ 6 months) and Future Tests (+/- 45 days) The Plan of Treatment section includes future care activities for the patient from all [place] treatmentfacilities. This section includes future appointments and future orders which are active, pending or scheduled. Future Appointments This section includes appointments that were scheduled to occur 6 months from the date of the Encounter, up to a maximum of 20 appointments. The data comes from all [place] treatment facilities. Appointment Date/Time Appointment Type Appointme nt Facility Name May 12, 2023 02:00 PM AMBULATORY - MEDICINE [facility] Advance Directives: All historical and current Section Date Range: From patient's date of to the date document was created. This section includes ALL of a patient's completed or amended [place] Advance and Rescinded Directives. The entries below indicate that a directive exists for the patient, but an actual copy is not included with this document. The data comes from all [place] facilities. Date Advance Directives Provider Source Sep 13, 2018 ADVANCE DIRECTIVE DISCUSSION BRADY NICK [facility] Encounter Notes: All associated encounter notes This section contains the clinical notes associated to the Encounter. Date/Time Encounter Note(s) Provider Source May 03, 2023 10:05 AM REPORT OF CONTACT: LOCAL TITLE: APPOINTMENT SCHEDULING NOTE STANDARD TITLE: REPORT OF CONTACT DATE OF NOTE: MAY 03, 2023@10:05 ENTRY DATE: MAY 03, 2023@10:06:19 AUTHOR: [facility] EXP COSIGNER: URGENCY: STATUS: COMPLETED APPOINTMENT SCHEDULING NOTE Has ADDENDA Attempted to schedule: New Patient Appointment Contact attempt made to 1st attempt by: Telephone Left message on voice mail to call back to this number /ti/ [facility] [facility] WEIGHER BULKER Signed: 05/03/2023 10:07 05/03/2023 ADDENDUM STATUS: COMPLETED [place] returned this writers call. Scheduled 05/12/2023 at 2pm, Appointment Letter Sent /ti/ [facility] CLINICAL WEIGHER BULKER Signed: 05/03/2023 12:09 [facility]
--- OUTSIDE RECORDS SUMMARY | 2023-06-19 13:07 | XMS_ITS | Encounter Summary ---
Author Name [employer] [facility] [employer] Organization [facility] Address [address] [place] [address] Support Name Relationship Address Phone SHERITAFAVIOLA Next of [place] [address] [place] [address] FAVIOLA MAGALLON Emergency Contact [address] [place], [place] [id number] JOSE ELIAS LANDON Next of Kin [address] [facility] [place], [place] ANGIE LANDON Emergency Contact [address] [place], [place] Selected Encounter This section includes the information on record at [place] for the Encounter. Date/Time Encounter Type Encounter Description Reason Provider Source May 12, 2023 02:00 PM OFFICE O/P [place] 60 MIN PRIMARY CARE/MEDICINE ICD-10-CM I10 Essential (primary) hypertension GABINOTERESA L IHE Encounter Template Text not used by [place] Assessments - Encounter Diagnoses This section includes the primary and secondary diagnoses documented for the Encounter. Date/Time Primary/Secondary Diagnosis Diagnosis Name Provider Source May 12, 2023 03:24 PM PRIMARY Essential (primary) hypertension GABINOTERESA L [facility] May 12, 2023 03:24 PM SECONDARY Contact with and exposure to other hazardous substances TERESA LLOYD L [facility] May 12, 2023 03:24 PM SECONDARY Encounter for immunization SHERYL NICHOLAS [facility] May 12, 2023 03:24 PM SECONDARY Irritable bowel syndrome with diarrhea TERESA LLOYD [facility] May 12, 2023 03:24 PM SECONDARY Microscopic colitis, unspecified LLOYDTERESA YANES [facility] May 12, 2023 03:24 PM SECONDARY Migraine, unsp, not intractable, without status migrainosus TERESA LLOYD [facility] May 12, 2023 03:24 PM SECONDARY Nicotine dependence, unspecified, uncomplicated TERESA LLOYD [facility] Vital Signs: All taken on the encounter date This section contains inpatient and outpatient Vital Signs collected on the date of the Encounter. Date/Time Temperature Pulse Blood Pressure Respiratory Rate SP02 Pain Height Weight Body Mass Index Source May 12, 2023 02:04 PM 133/94 [facility] May 12, 2023 01:46 PM 98.5 96 146/100 17 98 3 70 223.4 32 [facility] Immunizations: All administered on the encounter date This section contains immunizations associated to the Encounter. Immunization Series Date Issued Reaction Comments INFLUENZA, INJECTABLE, QUADR IVALENT, PRESERVATIVE FREE May 12, 2023 TDAP May 12, 2023 Social History: Smoking Status (Most current) and Tobacco Use (All prior to encounter date) This section includes the most current, and the historical, smoking and tobacco- related health factors from the [place] facility where the Encounter took place. Current Smoking Status This section includes the most current smoking, or tobacco-related health factor, from the [place] facility where the Encounter took place. Date/Time Current Smoking Status Comment Sulema ortiz May 12, 2023 02:00 PM VA-TOBACCO USE DECLINED TO ANSWE R [facility] Advance Directives: All historical and current Section Date Range: From patient's date of to the date document was created. This section includes ALL of a patient's completed or amended [place] Advance and Rescinded Directives. The entries below indicate that a directive exists for the patient, but an actual copy is not included with this document. The data comes from all [place] facilities. Date Advance Directives Provider Source Sep 13, 2018 ADVANCE DIRECTIVE DISCUSSION BRADY NICK [facility] Encounter Notes: All associated encounter notes This section contains the clinical notes associated to the Encounter. Date/Time Encounter Note(s) Provider Source May 12, 2023 02:57 PM ADMINISTRATIVE NOT E: LOCAL TITLE: AFTER VISIT SUMMARY NOTE STANDARD TITLE: ADMINISTRATIVE NOTE DICT DATE: MAY 12, 2023@14:57:47 ENTRY DATE: MAY 12, 2023@14:57:47 DICTATED BY: TERESA LLOYD EXP COSIGNER: URGENCY: STATUS: COMPLETED The patient was provided with a copy of an after-visit summary at the conclusion of the visit. A copy of the after-visit summary provided to the patient is available in [employer]. SCANNED DOCUMENT SIGNATURE NOT REQUIRED Electronically Filed: 05/12/2023 by: TERESA LLOYD MD STAFF PHYSICIAN TERESA LLODY [facility] May 12, 2023 02:09 PM INTERNAL MEDICINE NOTE: LOCAL TITLE: MEDICINE CLINIC NOTE STANDARD TITLE: INTERNAL MEDICINE NOTE DATE OF NOTE: MAY 12, 2023@14:09 ENTRY DATE: MAY 12, 2023@14:09:18 AUTHOR: TERESA LLOYD EXP COSIGNER: URGENCY: STATUS: COMPLETED ID: SAMANTHA LANDON is a 43 year old FEMALE seen in clinic today to establish primary care. Preferred name and pronouns: Perfecto, she/her Transitioning to [place] as primary source of health care. Going back to school. Past PCP: Yordan Recent hospitalizations [facility]- blood pressure -- ASSESSMENT AND PLAN -- # Hypertension with features concerning for secondary hypertension: She was recently hospitalized and is now stabilized on 5 blood pressure medications. She was prescribed spironolactone but stopped as it dropped her blood pressure too low. - Follow-up with renal as planned to complete secondary hypertension work-up - Follow-up with me in 3 months for medication adjustment (may be able to decrease or stop a couple of the blood pressure medicines if we add the spironolactone back) # migraines: frequency is occasional sumatriptan 25 mg #Tobacco use disorder: Was able to quit with assistance of Chantix. Rx'd today. goal is cessation. # microscopic colitis occasionally has severe diarrhea that she manages with PO budesonide given appearance of microscopic colitis on colonoscopy. last used 6 months ago. - refer to GI again if microscopic colitis symptoms become prominent # IBS: rx'd dicylcomine to be used as needed (uses infrequently) # Irregular period: No period in 5 months. Not on OCPs but no possibility of (female partner only). Mother went through menopause at 40. May be in perimenopause. Has some night sweats but not bothersome. Discussed that menopause is diagnosed after 12 months of no periods. - return if having bothersome menopausal symptoms HCM #Cancer screening: - Colon Cancer Screen: [place] 03/2021; avg risk screening starting 03/2031 - Mammo: updated reminder. due 10/2023 for annual mammo - Pap: normal co-testing 03/2020. due 03/2025 #Metabolic screening: - Cholesterol: - A1c: 5.5% 09/2022, recheck 3-5 years #ID screening: - HIV screen: neg 09/2022 - HCV screen: neg 09/2022 Follow up in 3 months or PRN Next visit: [] follow up blood pressure mgmt [] obtain baseline cholesterol testing if not visible in JLV --- HPI --- Mom Carolina accompanies her today. 's concerns: [] HTN [] was told years ago that she had mitral valve prolapse - not seen most recent TTE [] tobacco - 1/2 ppd. varenicline no period in 5 months. +hot flashes, night sweats PMH: Hypertension ELISA 1 Migraine Tobacco use disorder - chantix Elevated hemoglobin Anxiety Mitral valve regurgitation; dx'ed teenager with MVP; saw cardiology in the [place]. Not seen on most recent TTE at [place] earlier this year. PSH: Wrist surgery as a teenager Any history of ? no 5 months no period Med rec: reconciled and given to pt. 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 Grew up in [place]. Partner is Angie - she works in law enforcement. 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 Service Locations: [facility] tours. [place] ANDREW: Radiation to block radar waves, MARNIE-5 Repeatedly vaccinated against anthrax. HRB: Tob: 1/2 ppd. ETOH: Yes, twice a week 2 beers. Drugs: no Exercise/Diet: Lifts weights. Sexual activity: no concerns Guns in home? locked FH: no known fhx of colon cancer or breast cancer. Mother: Depression, otherwise healthy Father: Astrocytoma. Hypertension. by suicide. 3-4 blood pressure meds. Paternal aunt with brain tumor. Grandparents: Paternal GF with stroke at age 53. Siblings: Healthy. Pap history: ELISA 1 in 2010; subsequently had 3 normal annual Pap 07/14/2020 NIL/HPV negative - due 07/2025 Mammogram: 10/28/2022 ACR 1 Negative FINDINGS: The breasts have scattered areas of fibroglandular density. There are no dominant masses, suspicious micro calcifications or areas of architectural distortion. Colonoscopy: 03/30/2021 [facility] Indications: Diarrhea, hematochezia, history of IBS treated with dicyclomine Impression: Internal hemorrhoids Hematochezia Diarrhea, unspecified type COMMENTS A. There is mild intraepithelial lymphocytosis that is suggestive, but not entirely diagnostic of the lymphocytic colitis form of microscopic colitis. This is typically associated with chronic watery diarrhea and normal/near normal colonoscopic appearance. Occasionally prolonged infectious diarrhea that occurs in outbreaks ([place] diarrhea) can show similar histologic changes. Some cases of lymphocytic colitis have been associated with medication use; high likelihood associations include NSAIDs, ASA, lansoprazole, ranitidine, sertraline, ticlopidine, and acarbose, with many other medications having been implicated as well. 09/20/2022 CCP Antibody,IgG/IgA neg Rheumatoid Factor neg FERRITIN 194.0 (H) 15.0 - 150.0 ng/mL IRON 87 37 - 145 ug/dL UIBC (UNSATURATED) 207 112 - 347 ug/dL IRON BINDING CAPACITY 294 250 - 400 ug/dL IRON,% SATURATION 30 14 - 50 % 05/01/2023 9:33 AM [facility] [id number]^M[place]UL^[place] [address] Name: SAMANTHA LANDON : 1980 Study Date: 05/01/2023 08:40 AM Age: 43 yrs Gender: Female Patient Location: [facility] Reason For Study: HTN (hypertension) Ordering Physician: MUKUL LACEY Referring Physician: MUKUL LACEY Performed By: HL BSA: 2.2 m2 Height: 69 in Weight: 228 lb BP: 136/84 mmHg Procedure Complete Echo Adult. Interpretation Summary Left ventricular size, wall motion and function are normal. The ejection fraction is 55-60%. There is mild concentric left ventricular hypertrophy. Normal right ventricle size and systolic function. No hemodynamically significant valvular abnormalities on 2D or color flow imaging. Left Ventricle Left ventricular size, wall motion and function are normal. The ejection fraction is 55-60%. There is mild concentric left ventricular hypertrophy. Left ventricular diastolic function is indeterminate. No regional wall motion abnormalities noted. Right Ventricle Normal right ventricle size and systolic function. Atria Normal left atrial size. Right atrial size is normal. There is no color Doppler evidence of an atrial shunt. Mitral Valve Mitral valve leaflets appear normal. There is no evidence of mitral stenosis or clinically significant mitral regurgitation. Tricuspid Valve Tricuspid valve leaflets appear normal. There is no evidence of tricuspid stenosis or clinically significant tricuspid regurgitation. Aortic Valve Aortic valve leaflets appear normal. There is no evidence of aortic stenosis or clinically significant aortic regurgitation. Pulmonic Valve The pulmonic valve is not well seen, but is grossly normal. This degree of valvular regurgitation is within normal limits. Vessels The aorta root is normal. Normal size ascending aorta. IVC diameter <2.1 cm collapsing >50% with sniff suggests a normal RA pressure of 3 mmHg. Pericardium There is no pericardial effusion. Exam: Temperature: 98.5 F [36.9 C] (05/12/2023 13:46) Blood Pressure: 133/94 (05/12/2023 14:04) Pulse: 96 (05/12/2023 13:46) Respiration: 17 (05/12/2023 13:46) Pain: 3 (05/12/2023 13:46) Pulse Oximetry: 98% (05/12/2023 13:46) Body Mass Index: 32.1 Weight-Last 3: Measurement DT WEIGHT LB(KG)[BMI] 05/12/2023 13:46 223.4(101.33)[32*] GEN: NAD, ambulates steadily without assistive device HEENT: Sclera non-icteric, EOMI CV: RRR, no m/r/g Pulm: Normal respiratory effort, CTAB Ext: No peripheral edema Hepatitis C Testing: Prior negative anti-HCV test. Date: September 20, 2022 Location: [facility] Source of result: JLV /Intentions/Contrace ption: The patient is medically able to conceive. The patient states that they are not . An automated review of this patient's chart indicates the following orders are potentially harmful: Orderable Item Status Start Stop LOSARTAN TAB 100MG PENDING CARVEDILOL TAB 6.25MG PENDING Action following medication review: Potentially harmful medications reviewed;counseling completed: Counseled on the need for effective contraception Comment: sexually active with female partner only The patient does not desire within the next year. The patient has no current male partner, so is not possible. Cervical Cancer Screening: The patient has had a documented normal Pap smear completed previously. Location: [facility] Date: March 09, 2020 Comment: NEYDA neg HPV Mammogram Screening: Record prior or outside mammogram: Written Report Available Outside report Received on: May 12, 2023 Location: [facility] Mammogram Screening Date of procedure: October 26, 2022 Comment: ACR-1 Patient does not have dense breast tissue Interpretation of results and decision making Summary of results: BIRAD 1, Radiologist recommends the following: Return for screening mammogram in one year Method patient contacted by: Patient already notified/not needed Comment: outside result Additional Information: Toxic Exposure Screening Follow-Up: Exposure Concern(s): 05/12/2023 Airborne Hazards/Open Burn Pit - Toxic Exposure Concern Radiation - Toxic Exposure Concern Follow-up Question(s): 05/12/2023 No Questions - Toxic Exposure Concern [place]/caregiver has no health or medical concerns related to their concern of environmental exposure. The following connections were provided to the [place]/caregiver: No connections needed at this time Medication Reconciliation: Education Evaluations *Was medication education provided for NEW medications or CHANGES to medications? (including medication name, dose, route, reason for use, and potential side effects). Yes. Verbal education was provided to patient/caregiver and patient/caregiver verbalized understanding. TERATOGENIC MED & CONTRACEPTION REVIEW (Optional)... = MEDICATION RECONCILIATION = List Given: An updated medication list was provided to the patient/caregiver. Review Done: The medication list shown below was verified for accuracy and it includes all pending medications/active medications/all medications or discontinued within the last 90 days/all remote medications and non-VA medications. If a given category (i.e. remote meds) is not shown, that means that a patient doesn't have a medication(s) in that category. Allergies listed below were also reviewed/updated for accuracy. Allergies/ADR from [employer]D may not display in CPRS. Use JLV MRT5 - Allergies/ADRs FACILITY ALLERGY/ADR -------- [facility]HELLE PELAYO FED [facility] NO KNOWN ALLERGIES CLNCL/HLTH MELISSA REPT EFF [id number] [facility]IL [facility] LISINOPRIL [facility] NO KNOWN ALLERGIES Active and Recently Outpatient Medications (including Supplies): Issue Date Status Last Fill Pending Outpatient Medications Refills Expiration 1) CARVEDILOL 6.25MG TAB Qty: 180 Sig: PENDING TAKE ONE TABLET BY MOUTH TWICE A DAY Refills: 0 2) CHLORTHALIDONE 25MG TAB Qty: 90 Sig: PENDING TAKE ONE TABLET BY MOUTH EVERY DAY Refills: 0 3) DICYCLOMINE HCL 10MG CAP Qty: 90 Sig: PENDING TAKE ONE CAPSULE BY MOUTH EVERY DAY Refills: 0 NEEDED 4) DILTIAZEM (EQV-TIAZAC) 240MG 24HR CAP PENDING Qty: 90 Sig: TAKE ONE CAPSULE BY Refills: 0 MOUTH EVERY DAY 5) LOSARTAN 100MG TAB Qty: 90 Sig: TAKE PENDING ONE TABLET BY MOUTH EVERY DAY Refills: 0 6) OMEPRAZOLE 20MG EC CAP Qty: 90 Sig: PENDING TAKE ONE CAPSULE BY MOUTH EVERY DAY Refills: 0 7) SPIRONOLACTONE 25MG TAB Qty: 90 Sig: PENDING TAKE ONE TABLET BY MOUTH EVERY DAY Refills: 0 8) SUMATRIPTAN SUCCINATE 25MG TAB Qty: 30 PENDING Sig: TAKE ONE TABLET BY MOUTH EVERY Refills: 0 DAY NEEDED 9) VARENICLINE TAB Qty: 56 Sig: TAKE PENDING ONE-HALF TABLET BY MOUTH EVERY DAY FOR Refills: 0 3 DAYS, THEN TAKE ONE-HALF TABLET TWICE A DAY FOR 4 DAYS, THEN TAKE ONE TABLET TWICE A DAY Time-based coding used because *more than 50 percent* of the time below was spent counseling or coordinating care. Total Time spent for F2F/VVC encounter: ___65___ Minutes [X] Preparing to see the patient (ex: chart review) [X] Obtaining and/or reviewing separately obtained history [X] Performing a medically appropriate examination and/or evaluation [X] Counseling and educating the patient/family/caregiver [X] Ordering medications, tests, or procedures [ ] Referring to and communicating with other health patient care technician (when not separately reported) [X] Documenting clinical information in the electronic or other health record [X] Independently interpreting results (not separately reported) and communicating results to the patient/family/caregiver [ ] Care coordination (not separately reported) /ti/ TERESA LLOYD MD STAFF PHYSICIAN Signed: 05/12/2023 15:26 TERESA LLOYD [facility] May 12, 2023 01:47 PM INTERNAL MEDICINE OUTPATIENT NOTE: LOCAL TITLE: MEDICINE CLINIC NURSING NOTE STANDARD TITLE: INTERNAL MEDICINE OUTPATIENT NOTE DATE OF NOTE: MAY 12, 2023@13:47 ENTRY DATE: MAY 12, 2023@13:47:52 AUTHOR: SHERYL NICHOLAS EXP COSIGNER: URGENCY: STATUS: COMPLETED TYPE OF VISIT: Appointment Check In Type of appointment: In-person appointment REASON FOR VISIT: New patient ALLERGIES: Patient has answered NKA VITAL SIGNS: Blood Pressure: 146/100 (05/12/2023 13:46) recheck bp 133/94. Pulse: 96 (05/12/2023 13:46) Respiration: 17 (05/12/2023 13:46) Temperature: 98.5 F [36.9 C] (05/12/2023 13:46) Weight: 223.4 lb [101.33 kg] (05/12/2023 13:46) Height: 70 in [177.8 cm] (05/12/2023 13:46) BMI: 32.1 O2 Sat: 98% (05/12/2023 13:46) Pain: 3 (05/12/2023 13:46) PAIN SCREEN: Patient is having significant pain that they would like to talk to their provider about today. Acute pain is new pain, which as been present for less than 6 months Words used to describe pain: sharp, burining Number that best describes pain intensity on average in the past week: 3 Pain located in the following location(s): other: buttock Pain has been happening for: less than one week Pain is worse when: other: having bowel movement Pain is better when: medication Toxic Exposure Screening: The [place]/caregiver was asked if they believe the [place] experienced any toxic exposure(s), such as Airborne Hazards and Open Burn Pit, [place] War related exposures, Agent Towner, Radiation, contaminated water at [employer] or other such exposures, 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 [place]/caregiver believes the [place] was exposed to the following while serving in the Armed Forces: Airborne Hazards and Open Burn Pit: [place]/caregiver was made aware of educational resources that includes information on the Registry Program, presumptive conditions and how to file a claim. Printed information was offered and provided if desired. Radiation: /caregiver was made aware of educational resources that includes information on the Registry Program, presumptive conditions and how to file a claim. Printed information was offered and provided if desired. No questions at this time [place]/caregiver was informed of local points of contact. Contact information for local resources: - Veterans Benefits for claims submission: Have the call or have them visit the following web address for online scheduling: [email or web address] - [place] Healthcare Enrollment: [phone] ([phone]) - Find a [place] Price Clerk (VSO): Have the call [phone] or look up their VSO at: [email or web address] - [facility] Navigators: Teresa Mandel, [facility] [phone] Toxic Exposure Screening Follow-Up reminder is needed. Name of person notified: [facility] Depression Screening: Perform PHQ-2 A PHQ-2 screen was performed. The score was 0 which is a negative screen for depression. Over the past two weeks, how often have you been bothered by the following problems? 1. Little interest or pleasure in doing things Not at all 2. Feeling down, depressed, or hopeless Not at all Alcohol Use Screen (AUDIT-C): Alcohol Screen: SCREEN FOR ALCOHOL (AUDIT-C) An alcohol screening test (AUDIT-C) was negative (score=4). 1. How often did you have a drink containing alcohol in the past year? Consider a drink to be a 12 ounce can or bottle of regular beer, 8 ounces of malt liquor, a 5 ounce glass of table wine, or a 1.5 ounce shot of liquor (like scotch, gin, or vodka). Two to three times per week 2. How many drinks containing alcohol did you have on a typical day when you were drinking in the past year? Three or four drinks 3. How often did you have 4 or more drinks on one occasion in the past year? Never PTSD Screening: PC-PTSD-5 A PTSD screening test (PC-PTSD-5) was negative (score=0). IN THE PAST MONTH, have you ever had any experience that was so frightening, horrible or traumatic. For example: A serious accident or fire a physical or sexual assault or abuse An earthquake or flood A war Seeing someone be killed or seriously injured Having a loved one through homicide or suicide 1. Have you ever experienced this kind of event? NO 2. Had nightmares about the event(s) or thought about the event(s) when you did not want to? Response not required due to responses to other questions. 3. Tried hard not to think about the event(s) or went out of your way to avoid situations that reminded you of the event(s)? Response not required due to responses to other questions. 4. Been constantly on guard, watchful, or easily startled? Response not required due to responses to other questions. 5. [place] numb or detached from people, activities, or your surroundings? Response not required due to responses to other questions. 6. [place] guilty or unable to stop blaming yourself or others for the event(s) or any problems the event(s) may have caused? Response not required due to responses to other questions. Nursing Annual Screening: Fall History Screen During the past 12 months, have you had any falls? Patient does not report any falls in the past 12 months. MEDICATIONS: Patient does not have an active prescription for one of the following medications: Antihypertensives, Antidepressants, Antipsychotics, Diuretics, or Opioid Analgesics (Contolled Substance medications used for pain). Script Talk Screen Are you able to read your prescription bottles with your glasses, magnifiers or other aids? Yes or patient not taking any prescriptions. Skin Screen Patient reports any current pressure ulcers, a history of pressure ulcers, or a wound from a medical record librarians teacher or Patient is bed-confined or a wheelchair-user or Patient requires assistance to transfer/change position No, Skin Screen is Negative Home Abuse/Violence Screen Is your home free of abuse and violence? Yes MOVE! Program Screen Body Mass Index (BMI)= 32.1 [place]: No data available [place] Hgb A1C: No data available [place] Hgb A1C: No data available Point of Care Hgb A1C: POC HGB A1C____ No Outpatient Nutrition Screen Body Mass Index (BMI)= 32.1 [place]: No data available [place] Hgb A1C: No data available [place] Hgb A1C: No data available Point of Care Hgb A1C: POC HGB A1C____ Is patient's BMI less than 18.5? No Does patient have swallowing, coughing, or chewing problems affecting oral intake? No Has patient experienced unplanned weight loss or gain greater than 10 pounds over the last 2 months? No Is patient's Hgb A1C (Glycosylated Hemoglobin) greater than 9.5? Information not available Is patient receiving Total Parenteral Nutrition (TPN) or Tube Feedings? No Patient Health Education Screen BARRIERS/SPECIAL NEEDS: No barriers identified PREFERRED STYLE OF LEARNING: Listening Client Assistive Service (ORTEGA) Screen Does the patient require assistance with outpatient visit? No TBI Screening: The [place] was not deployed in support of post-11/14 operations. Tobacco Use Screening: The patient declines to say if they use tobacco. Screen for Embedded Fragments: SCREEN FOR EMBEDDED FRAGMENTS The patient reports no embedded fragments. Homelessness/Food Insecurity Screen: In the past 2 months, have you been living in stable housing that you own, rent, or stay in as part of a household? Yes - Living in stable housing. Are you worried or concerned that in the next 2 months you may NOT have stable housing that you own, rent, or stay in as part of a household? No - Not worried about housing near future The reports the following: Within the past 12 months, you worried whether your food would run out before you got money to buy more. Never true Within the past 12 months, the food you bought just didn't last and you didn't have money to get more. Never true Food Assistance Programs [facility] Food Assistance Programs [facility] COVID-19 Immunization: Refused Pfizer Monovalent COVID-19 vaccine Immunization: COVID-19 (PFIZER), MRNA, LNP-S, PF, KRISTEN-SUCROSE, 30 MCG/0.3 ML (AGES 12+ YEARS) Refusal Reason: PATIENT DECISION Patient refuses all immunization(s) in the COVID-19 group Date Documented: 05/12/23 13:57 Influenza Immunization: The patient was given the influenza VIS which lists the benefits and side effects of the vaccine and which reviews the risks of not receiving the flu vaccine. The VIS was reviewed with the patient and they were given an opportunity to ask questions. The patient was provided education on how to decrease the risk of influenza infection including social distancing and use of good hand hygiene. The patient denied any prior severe reaction to the flu vaccine or its components. The patient gave verbal consent to receive the vaccine. Influenza, Quadrivalent preservative free (Fluzone - syringe) Administered: INFLUENZA, INJECTABLE, QUADRIVALENT, PRESERVATIVE FREE Date Administered: May 12, 2023 14:00 Senior Analytical Chemist: SANOFI PASTEUR Lot: [id number] Exp Date: Sep 03, 2023 ND: [id number] Admin Route/Site: INTRAMUSCULAR/LEFT DELTOID Dosage: 0.5mL Vaccine Information Statement(s): INFLUENZA(FLU) VACC(INACTIVATED OR RECOMBINANT)VIS Oct 09, 2020 ([place]) Order By: Policy Administered By: Sheryl Nicholas Td / Tdap Immunization: Administered: TDAP Date Administered: May 12, 2023 14:00 Senior Analytical Chemist: [email or web address] FoundersINE Lot: [id number] Exp Date: July 08, 2025 NDC: [phone] Admin Route/Site: INTRAMUSCULAR/LEFT DELTOID Dosage: 0.5mL Vaccine Information Statement(s): TDAP (TETANUS, DIPHTHERIA, PERTUSSIS) VACCINE VIS Oct 09, 2020 ([place]) Order By: Policy Administered By: Sheryl Nicholas Vaccine Information Sheet (VIS) was given to the patient/caregiver, education regarding adverse reactions was discussed, as well as barriers to learning, if any, were acknowledged. /ti/ [facility] Signed: 05/12/2023 14:04 SHERYL NICHOLAS [facility] May 12, 2023 01:42 PM ADVANCE DIRECTIVE: LOCAL TITLE: AD NOTIFICATION AND SCREENING STANDARD TITLE: ADVANCE DIRECTIVE DATE OF NOTE: MAY 12, 2023@13:42 ENTRY DATE: MAY 12, 2023@13:42:22 AUTHOR: SIMONA FUNG EXP COSIGNER: URGENCY: STATUS: COMPLETED ADVANCE DIRECTIVE NOTIFICATION: Patient was given written notification of the following rights: 1. Accept or refuse any medical treatment. 2. Complete a durable power of civil attorney for health care. 3. Complete a living will. ADVANCE DIRECTIVE SCREENING: Does patient have an Advance Directive? The patient does not have an Advance Directive. The patient does not wish to create an Advance Directive for health care. Comment: DECLINED /ti/ SIMONA FUNG [employer] Code Enforcement Officer Signed: 05/12/2023 13:42 SIMONA FUNG [facility]
== END 2023-06-19 12:59 | disposition home or self-care (01) ==
LOC: RAD 13:04
PROVIDERS: Visit Provider Chiropractor
DX: I73.00 Raynaud's syndrome without gangrene (principal)
CPT/HCPCS: 93306